=== PATIENT | male | born 1960 | race African-American/Black ===

== ENCOUNTER 2017-08-11 10:51 | Inpatient (IN) | payer OTHER ==
[2017-08-11 11:30] VITALS: BMI 23.7
--- NOTE | 2017-08-11 13:34 | HP ---
Admission ROS S - [facility] Chief Complaint: I WANT TO GO TO REHAB Allergies/Adverse Reactions: Allergies Allergy/AdvReac Type Severity Reaction Status Date / Time Penicillins Allergy Severe Swelling Verified 08/11/17 13:39 History of Present Illness: 57 YEARS OLD MALE WITH LONG HISTORY OF ALCOHOL NICOTINE DEPENDENCE HAS HYPERTENSION WEIGHT LOSS POSITIVE PPD AND DEPRESSION IS ADMITTED TO REHAB Exam Limitations: No Limitations - Ebola screening Have you traveled outside of the country in the last 21 days: No Have you had contact with anyone from an Ebola affected area: No Have you been sick,other than usual withdrawal symptoms: No Do you have a fever: No - Review of Systems Constitutional: Weight Stable EENT: reports: No Symptoms Reported Respiratory: reports: No Symptoms reported Cardiac: reports: No Symptoms Reported GI: reports: No Symptoms Reported : reports: No Symptoms Reported Musculoskeletal: reports: No Symptoms Reported Integumentary: reports: No Symptoms Reported Neuro: reports: No Symptoms reported Endocrine: reports: No Symptoms Reported Hematology: reports: No Symptoms Reported Psychiatric: reports: Judgement Intact, Orientated x3, Depressed Other Systems: Reviewed and Negative Patient History - Patient Medical History Hx Anemia: No Hx Asthma: No Hx Chronic Obstructive Pulmonary Disease (COPD): No Hx Cancer: No Hx Cardiac Disorders: No Hx Congestive Heart Failure: No Hx Hypertension: Yes Hx Hypercholesterolemia: No Hx Pacemaker: No HX Cerebrovascular Accident: No Hx Seizures: No Hx Dementia: No Hx Diabetes: No Hx Gastrointestinal Disorders: No Hx Liver Disease: No Hx Genitourinary Disorders: No Hx Sexually Transmitted Disorders: No Hx Renal Disease (ESRD): No Hx Thyroid Disease: No Hx Human Immunodeficiency Virus (HIV): No Hx Hepatitis C: No Hx Depression: Yes Hx Suicide Attempt: No Hx Bipolar Disorder: No Hx Schizophrenia: No - Patient Surgical History Past Surgical History: No - PPD History Previous Implant?: Yes Documented Results: Positive w/o proof Implanted On Prior [facility] Admission?: No PPD to be Administered?: No - Smoking Cessation Smoking history: Current every day smoker Have you smoked in the past 12 months: Yes Aproximately how many cigarettes per day: 20 Cigars Per Day: 0 Hx Chewing Tobacco Use: No Initiated information on smoking cessation: Yes 'Breaking Loose' booklet given: 08/11/17 - Substance & Tx. History Hx Alcohol Use: Yes Hx Substance Use: Yes Substance Use Type: Alcohol, Cocaine Hx Substance Use Treatment: Yes (2012) - Substances Abused Crack Route: Smoking Frequency: Daily Amount used: $200 Age of first use: 23 Date of Last Use: 08/07/17 Alcohol-beer/vodka Route: Oral Frequency: 1-2 times per week Amount used: 1-6 pk./1 pt Age of first use: 14 Date of Last Use: 08/07/17 Family Disease History - Family Disease History Family Disease History: Heart Disease: Mother (), CA: Father () , Other: Father, Mother Admission Physical Exam [facility] - Vital Signs Vital Signs: Vital Signs - 24 hr 08/11/17 11:28 Temperature 98.2 F Pulse Rate 60 Respiratory 20 Rate Blood Pressure 158/94 - Physical General Appearance: Yes: No Apparent Distress, Appropriately Dressed, Thin HEENTM: Yes: Hearing grossly Normal, Normal ENT Inspection, Normocephalic, Normal Voice Respiratory: Yes: Chest Non-Tender, Lungs Clear, Normal Breath Sounds, No Respiratory Distress, No Accessory Muscle Use Neck: Yes: Supple, Trachea in good position Breast: Yes: Breasts Symetrical, No Discharge, No masses Cardiology: Yes: Regular Rhythm, Regular Rate, S1, S2 Abdominal: Yes: Normal Bowel Sounds, Non Tender, Soft Genitourinary: Yes: Within Normal Limits Back: Yes: Normal Inspection Musculoskeletal: Yes: full range of Motion, Gait Steady Extremities: Yes: Normal Inspection, Normal Range of Motion, Non-Tender 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: Yes: Fully Oriented, Alert, Motor Strength 5/5, Normal Mood/Affect , Normal Response Integumentary: Yes: Warm Lymphatic: Yes: Within Normal Limits - Diagnostic (1) Alcohol dependence with uncomplicated withdrawal Current Visit: Yes Status: Acute (2) Cocaine dependence Current Visit: Yes Status: Chronic Qualifiers: Substance use status: uncomplicated Qualified Code(s): F14.20 - Cocaine dependence, uncomplicated (3) Nicotine dependence Current Visit: Yes Status: Acute Qualifiers: Nicotine product type: cigarettes Substance use status: in withdrawal Qualified Code(s): F17.213 - Nicotine dependence, cigarettes, with withdrawal Cleared for Admission [facility] - Detox or Rehab [facility] Level of Care: Observation Bed Detox Regimen/Protocol: Not Applicable Claeared for Rehab Admission: Yes [facility] Breath Alcohol Content Breath Alcohol Content: 0 Urine Drug Screen - Control Is Test Valid: Yes - Results Drug Screen Negative: No Urine Drug Screen Results: JAYLAN-Cocaine Inpatient Rehab Admission - Initial Determination Are CD services needed?: Yes Free of communicable disease: Yes Not in need of hospitalization: No - Rehab Admission Criteria Previous failed treatment: Yes Poor recovery environment: Yes Comorbidities: Yes Lacks judgement: No Patient is meeting Inpatient Rehab admission criteria:: Yes
[2017-08-11] MEDS ORDERED: MENTHOL/PHENOL 1 EACH UD MM PRN (13:43)
[2017-08-11] MEDS ORDERED: guaiFENesin/D-METHORPHAN HB 10 ML UNIT-DOSE CUPS PO PRN (13:43)
[2017-08-11] MEDS ORDERED: MAGNESIUM CITRATE 300 ML BOTTLE PO PRN (13:43)
[2017-08-11] MEDS ORDERED: NICOTINE POLACRILEX 4 MG GUM BC PRN (13:43)
[2017-08-11] MEDS ORDERED: LOPERAMIDE HCL 2 MG CAPSULE PO PRN (13:43)
[2017-08-11] MEDS ORDERED: ACETAMINOPHEN 325 MG TABLET (FP) PO PRN (13:43)
[2017-08-11] MEDS ORDERED: P-EPHED 60MG/TRIPROLIDI 2.5MG TABLET PO PRN (13:43)
[2017-08-11] MEDS ORDERED: MAGNESIUM HYDROX 2400MG/30ML ORAL SUSPENSION 30 ML CUP PO PRN (13:43)
[2017-08-11 17:05] LABS: HEMATOCRIT 42.1 % (35.4-49); HEMOGLOBIN 13.5 GM/dL (11.7-16.9); MCH 27.3 pg (25.7-33.7); MCHC 32.1 g/dl (32.0-35.9); MEAN CELL VOLUME 84.8 fl (80-96); MEAN PLT VOLUME 8.5 fl (7.5-11.1); PLATELET COUNT 287 K/MM3 (134-434); RBC 4.97 M/mm3 (4.00-5.60); RDW 15.8 % (11.9-15.9); WHITE BLOOD COUNT 6.2 K/mm3 (4.0-10.0)
[2017-08-11 17:19] LABS: ALBUMIN 3.5 g/dl (3.4-5.0); ANION GAP 4 (8-16); BLOOD UREA NITROGEN 15 mg/dL (7-18); CHLORIDE 107 mmol/L (98-107); CO2 31 mmol/L (21-32); CREATININE 1.2 mg/dL (0.7-1.3); GLUCOSE,RANDOM 102 mg/dL (74-106); POTASSIUM 4.3 mmol/L (3.5-5.1); SGOT/AST 14 U/L (15-37); SGPT/ALT 17 U/L (12-78); SODIUM 142 mmol/L (136-145)
[2017-08-11 17:21] LABS: ALK PHOS 86 U/L (45-117); BILIRUBIN,TOTAL 0.2 mg/dL (0.2-1.0); TOT PROT 7.3 g/dl (6.4-8.2)
[2017-08-11] MEDS: amLODIPine BESYLATE 5 MG TABLET (FP) PO SCH (17:56)
[2017-08-11] MEDS: NICOTINE 21 MG/24 HOURS TOPICAL PATCH TD SCH (17:57)
[2017-08-11] MEDS: IBUPROFEN 400 MG TABLET (FP) PO PRN (17:58)
[2017-08-11] MEDS ORDERED: MELATONIN 5 MG TABLETS PO PRN (22:00)
[2017-08-11] MEDS: THIAMINE HCL 100 MG TABLET (FP) PO SCH (22:39)
[2017-08-11 23:09] LABS: URINE APPEARANCE TURBID; URINE BILIRUBIN NEGATIVE (<2.0 mg/dL); URINE BLOOD NEGATIVE (NEGATIVE); URINE COLOR AMBER; URINE GLUCOSE (UA) NEGATIVE (NEGATIVE); URINE KETONE NEGATIVE (NEGATIVE); URINE LEUK ESTERASE NEGATIVE (NEGATIVE); URINE NITRITE NEGATIVE (NEGATIVE); URINE PROTEIN NEGATIVE (NEGATIVE); URINE UROBILINOGEN NEGATIVE mg/dL (0.2-1.0)
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
[2017-08-12] MEDS: amLODIPine BESYLATE 5 MG TABLET (FP) PO SCH (10:27)
[2017-08-12] MEDS: NICOTINE 21 MG/24 HOURS TOPICAL PATCH TD SCH (10:27)
[2017-08-12] MEDS: PRENATAL VITAMINS W/ FOLIC ACID TABLET (FP) PO SCH (10:27)
[2017-08-12] MEDS: THIAMINE HCL 100 MG TABLET (FP) PO SCH (22:40)
--- NOTE | 2017-08-13 08:49 | EKG ---
Test Reason : Blood Pressure : / mmHG Vent. Rate : 057 BPM Atrial Rate : 057 BPM P-R Int : 152 ms QRS Dur : 088 ms QT Int : 416 ms P-R-T Axes : 075 080 040 degrees QTc Int : 404 ms SINUS BRADYCARDIA SEPTAL INFARCT (CITED ON OR BEFORE 11-AUG-2017) ABNORMAL ECG WHEN COMPARED WITH ECG OF 11-AUG-2017 20:27, NO SIGNIFICANT CHANGE WAS FOUND Confirmed by OPAL SEALS MD ([id number]) on 08/13/2017 8:49:30 AM Referred By: Confirmed By:OPAL SEALS MD
--- NOTE | 2017-08-13 08:50 | EKG ---
Test Reason : Blood Pressure : / mmHG Vent. Rate : 065 BPM Atrial Rate : 065 BPM P-R Int : 154 ms QRS Dur : 086 ms QT Int : 406 ms P-R-T Axes : 076 075 022 degrees QTc Int : 422 ms NORMAL SINUS RHYTHM MINIMAL VOLTAGE CRITERIA FOR LVH, MAY BE NORMAL VARIANT SEPTAL INFARCT , AGE UNDETERMINED ABNORMAL ECG NO PREVIOUS ECGS AVAILABLE Confirmed by BOZENA MATA, OPAL ([id number]) on 08/13/2017 8:49:47 AM Referred By: Confirmed By:OPAL SEALS MD
[2017-08-13] MEDS: NICOTINE 21 MG/24 HOURS TOPICAL PATCH TD SCH (10:04)
[2017-08-13] MEDS: amLODIPine BESYLATE 5 MG TABLET (FP) PO SCH (10:04)
[2017-08-13] MEDS: PRENATAL VITAMINS W/ FOLIC ACID TABLET (FP) PO SCH (10:04)
[2017-08-13] MEDS: THIAMINE HCL 100 MG TABLET (FP) PO SCH (22:14)
[2017-08-14] MEDS: amLODIPine BESYLATE 5 MG TABLET (FP) PO SCH (10:18)
[2017-08-14] MEDS: PRENATAL VITAMINS W/ FOLIC ACID TABLET (FP) PO SCH (10:18)
[2017-08-14] MEDS: NICOTINE 21 MG/24 HOURS TOPICAL PATCH TD SCH (10:18)
[2017-08-14] MEDS: THIAMINE HCL 100 MG TABLET (FP) PO SCH (21:55)
[2017-08-15] MEDS: amLODIPine BESYLATE 5 MG TABLET (FP) PO SCH (10:14)
[2017-08-15] MEDS: PRENATAL VITAMINS W/ FOLIC ACID TABLET (FP) PO SCH (10:14)
[2017-08-15] MEDS: NICOTINE 21 MG/24 HOURS TOPICAL PATCH TD SCH (10:14)
[2017-08-15] MEDS: THIAMINE HCL 100 MG TABLET (FP) PO SCH (22:23)
[2017-08-16] MEDS: amLODIPine BESYLATE 5 MG TABLET (FP) PO SCH (10:37)
[2017-08-16] MEDS: NICOTINE 21 MG/24 HOURS TOPICAL PATCH TD SCH (10:37)
[2017-08-16] MEDS: PRENATAL VITAMINS W/ FOLIC ACID TABLET (FP) PO SCH (10:37)
[2017-08-16] MEDS: THIAMINE HCL 100 MG TABLET (FP) PO SCH (22:17)
[2017-08-17] MEDS ORDERED: PT OWN MED DRAWER 7, Y5N ONE (09:17)
[2017-08-17] MEDS: PRENATAL VITAMINS W/ FOLIC ACID TABLET (FP) PO SCH (10:25)
[2017-08-17] MEDS: amLODIPine BESYLATE 5 MG TABLET (FP) PO SCH (10:25)
[2017-08-17] MEDS: NICOTINE 21 MG/24 HOURS TOPICAL PATCH TD SCH (10:26)
--- NOTE | 2017-08-17 16:46 | PN ---
[facility] Progress Note Note: Patient c/o of sore throat worsen with swallowing. Denies SOB, CP, vertigo. Vital Signs Temperature 98.4 F 08/17/17 07:00 Pulse Rate 76 08/17/17 10:00 Respiratory Rate 18 08/17/17 10:00 Blood Pressure 133/77 08/17/17 10:00 O2 Sat by Pulse Oximetry (%) Laboratory Last Values WBC 6.2 K/mm3 (4.0-10.0) 08/11/17 14:08 RBC 4.97 M/mm3 (4.00-5.60) 08/11/17 14:08 Hgb 13.5 GM/dL (11.7-16.9) 08/11/17 14:08 Hct 42.1 % (35.4-49) 08/11/17 14:08 MCV 84.8 fl (80-96) 08/11/17 14:08 MCH 27.3 pg (25.7-33.7) 08/11/17 14:08 MCHC 32.1 g/dl (32.0-35.9) 08/11/17 14:08 RDW 15.8 % (11.9-15.9) 08/11/17 14:08 Plt Count 287 K/MM3 (134-434) 08/11/17 14:08 MPV 8.5 fl (7.5-11.1) 08/11/17 14:08 Sodium 142 mmol/L (136-145) 08/11/17 14:08 Potassium 4.3 mmol/L (3.5-5.1) 08/11/17 14:08 Chloride 107 mmol/L (98-107) 08/11/17 14:08 Carbon Dioxide 31 mmol/L (21-32) 08/11/17 14:08 Anion Gap 4 (8-16) L 08/11/17 14:08 BUN 15 mg/dL (7-18) 08/11/17 14:08 Creatinine 1.2 mg/dL (0.7-1.3) 08/11/17 14:08 Creat Clearance w eGFR > 60 (>60) 08/11/17 14:08 Random Glucose 102 mg/dL (74-106) 08/11/17 14:08 Calcium 9.0 mg/dL (8.5-10.1) 08/11/17 14:08 Total Bilirubin 0.2 mg/dL (0.2-1.0) 08/11/17 14:08 AST 14 U/L (15-37) L 08/11/17 14:08 ALT 17 U/L (12-78) 08/11/17 14:08 Alkaline Phosphatase 86 U/L (45-117) 08/11/17 14:08 Total Protein 7.3 g/dl (6.4-8.2) 08/11/17 14:08 Albumin 3.5 g/dl (3.4-5.0) 08/11/17 14:08 Urine Color Rosie 08/11/17 22:30 Urine Appearance Turbid 08/11/17 22:30 Urine pH 5.0 (5.0-8.0) 08/11/17 22:30 Ur Specific [place] 1.027 (1.001-1.035) 08/11/17 22:30 Urine Protein Negative (NEGATIVE) 08/11/17 22:30 Urine Glucose (UA) Negative (NEGATIVE) 08/11/17 22:30 Urine Ketones Negative (NEGATIVE) 08/11/17 22:30 Urine Blood Negative (NEGATIVE) 08/11/17 22:30 Urine Nitrite Negative (NEGATIVE) 08/11/17 22:30 Urine Bilirubin Negative (<2.0 mg/dL) 08/11/17 22:30 Urine Urobilinogen Negative mg/dL (0.2-1.0) 08/11/17 22:30 Ur Leukocyte Esterase Negative (NEGATIVE) 08/11/17 22:30 RPR Titer Nonreactive (NONREACTIVE) 08/11/17 14:08 HIV 1&2 Antibody Screen Negative 08/11/17 13:59 HIV P24 Antigen Negative 08/11/17 13:59 A/P AOx3 in no apparent distress no adventitious breath sounds + mild left cervical adenopathy, mild pharyngeal erythema skin intact, no erythema Plan: Ibuprofen 400mg PRN peridex wash throat culture continue to monitor
[2017-08-17] MEDS: MAG HYDROX/AL HYDROX/SIMETH 30 ML UNIT-DOSE CUP PO PRN (21:48)
[2017-08-17] MEDS: CHLORHEXIDINE GLUCONATE 118 ML MOUTHWASH MM SCH (21:48)
[2017-08-17] MEDS: THIAMINE HCL 100 MG TABLET (FP) PO SCH (21:50)
[2017-08-18] MEDS: PRENATAL VITAMINS W/ FOLIC ACID TABLET (FP) PO SCH (10:04)
[2017-08-18] MEDS: CHLORHEXIDINE GLUCONATE 118 ML MOUTHWASH MM SCH ×2 (10:04→21:46)
[2017-08-18] MEDS: amLODIPine BESYLATE 5 MG TABLET (FP) PO SCH (10:04)
[2017-08-18] MEDS: NICOTINE 21 MG/24 HOURS TOPICAL PATCH TD SCH (10:05)
[2017-08-18] MEDS: THIAMINE HCL 100 MG TABLET (FP) PO SCH (21:46)
[2017-08-19] MEDS: CHLORHEXIDINE GLUCONATE 118 ML MOUTHWASH MM SCH ×2 (10:00→21:54)
[2017-08-19] MEDS: amLODIPine BESYLATE 5 MG TABLET (FP) PO SCH (10:00)
[2017-08-19] MEDS: PRENATAL VITAMINS W/ FOLIC ACID TABLET (FP) PO SCH (10:00)
[2017-08-19] MEDS: NICOTINE 21 MG/24 HOURS TOPICAL PATCH TD SCH (10:02)
[2017-08-19] MEDS: MAG HYDROX/AL HYDROX/SIMETH 30 ML UNIT-DOSE CUP PO PRN (15:34)
[2017-08-19] MEDS: THIAMINE HCL 100 MG TABLET (FP) PO SCH (21:52)
[2017-08-20] MEDS: CHLORHEXIDINE GLUCONATE 118 ML MOUTHWASH MM SCH ×2 (10:31→21:27)
[2017-08-20] MEDS: PRENATAL VITAMINS W/ FOLIC ACID TABLET (FP) PO SCH (10:32)
[2017-08-20] MEDS: amLODIPine BESYLATE 5 MG TABLET (FP) PO SCH (10:32)
[2017-08-20] MEDS: NICOTINE 21 MG/24 HOURS TOPICAL PATCH TD SCH (10:32)
[2017-08-20] MEDS: THIAMINE HCL 100 MG TABLET (FP) PO SCH (21:27)
[2017-08-21] MEDS: NICOTINE 21 MG/24 HOURS TOPICAL PATCH TD SCH (10:16)
[2017-08-21] MEDS: PRENATAL VITAMINS W/ FOLIC ACID TABLET (FP) PO SCH (10:16)
[2017-08-21] MEDS: amLODIPine BESYLATE 5 MG TABLET (FP) PO SCH (10:16)
[2017-08-21] MEDS: CHLORHEXIDINE GLUCONATE 118 ML MOUTHWASH MM SCH ×2 (10:16→21:28)
[2017-08-21] MEDS: THIAMINE HCL 100 MG TABLET (FP) PO SCH (21:27)
[2017-08-22] MEDS: amLODIPine BESYLATE 5 MG TABLET (FP) PO SCH (10:28)
[2017-08-22] MEDS: PRENATAL VITAMINS W/ FOLIC ACID TABLET (FP) PO SCH (10:29)
[2017-08-22] MEDS: NICOTINE 21 MG/24 HOURS TOPICAL PATCH TD SCH (10:29)
[2017-08-22] MEDS: CHLORHEXIDINE GLUCONATE 118 ML MOUTHWASH MM SCH ×2 (10:30→21:47)
[2017-08-22] MEDS: THIAMINE HCL 100 MG TABLET (FP) PO SCH (21:47)
[2017-08-23] MEDS: CHLORHEXIDINE GLUCONATE 118 ML MOUTHWASH MM SCH ×2 (10:10→22:00)
[2017-08-23] MEDS: NICOTINE 21 MG/24 HOURS TOPICAL PATCH TD SCH (10:10)
[2017-08-23] MEDS: PRENATAL VITAMINS W/ FOLIC ACID TABLET (FP) PO SCH (10:10)
[2017-08-23] MEDS: amLODIPine BESYLATE 5 MG TABLET (FP) PO SCH (10:10)
[2017-08-23] MEDS: THIAMINE HCL 100 MG TABLET (FP) PO SCH (22:00)
[2017-08-24] MEDS: NICOTINE 21 MG/24 HOURS TOPICAL PATCH TD SCH (10:19)
[2017-08-24] MEDS: PRENATAL VITAMINS W/ FOLIC ACID TABLET (FP) PO SCH (10:19)
[2017-08-24] MEDS: CHLORHEXIDINE GLUCONATE 118 ML MOUTHWASH MM SCH ×2 (10:19→21:43)
[2017-08-24] MEDS: amLODIPine BESYLATE 5 MG TABLET (FP) PO SCH (10:19)
[2017-08-24] MEDS: THIAMINE HCL 100 MG TABLET (FP) PO SCH (21:43)
[2017-08-25] MEDS: PRENATAL VITAMINS W/ FOLIC ACID TABLET (FP) PO SCH (10:10)
[2017-08-25] MEDS: CHLORHEXIDINE GLUCONATE 118 ML MOUTHWASH MM SCH ×2 (10:10→21:58)
[2017-08-25] MEDS: amLODIPine BESYLATE 5 MG TABLET (FP) PO SCH (10:10)
[2017-08-25] MEDS: NICOTINE 21 MG/24 HOURS TOPICAL PATCH TD SCH (10:10)
[2017-08-25] MEDS: IBUPROFEN 400 MG TABLET (FP) PO PRN (10:11)
[2017-08-25] MEDS: THIAMINE HCL 100 MG TABLET (FP) PO SCH (21:58)
[2017-08-26] MEDS ORDERED: PT OWN MED DRAWER 7, Y5N ONE (09:16)
[2017-08-26] MEDS: CHLORHEXIDINE GLUCONATE 118 ML MOUTHWASH MM SCH ×2 (10:04→22:04)
[2017-08-26] MEDS: PRENATAL VITAMINS W/ FOLIC ACID TABLET (FP) PO SCH (10:04)
[2017-08-26] MEDS: NICOTINE 21 MG/24 HOURS TOPICAL PATCH TD SCH (10:04)
[2017-08-26] MEDS: amLODIPine BESYLATE 5 MG TABLET (FP) PO SCH (10:04)
[2017-08-26] MEDS: THIAMINE HCL 100 MG TABLET (FP) PO SCH (22:04)
[2017-08-27] MEDS: NICOTINE 21 MG/24 HOURS TOPICAL PATCH TD SCH (10:24)
[2017-08-27] MEDS: PRENATAL VITAMINS W/ FOLIC ACID TABLET (FP) PO SCH (10:24)
[2017-08-27] MEDS: CHLORHEXIDINE GLUCONATE 118 ML MOUTHWASH MM SCH ×2 (10:24→21:46)
[2017-08-27] MEDS: amLODIPine BESYLATE 5 MG TABLET (FP) PO SCH (10:24)
[2017-08-27] MEDS: THIAMINE HCL 100 MG TABLET (FP) PO SCH (21:46)
[2017-08-28] MEDS: amLODIPine BESYLATE 5 MG TABLET (FP) PO SCH (10:08)
[2017-08-28] MEDS: PRENATAL VITAMINS W/ FOLIC ACID TABLET (FP) PO SCH (10:08)
[2017-08-28] MEDS: NICOTINE 21 MG/24 HOURS TOPICAL PATCH TD SCH (10:09)
[2017-08-28] MEDS: CHLORHEXIDINE GLUCONATE 118 ML MOUTHWASH MM SCH ×2 (10:09→22:02)
--- NOTE | 2017-08-28 12:02 | PN ---
Psychiatric Progress Note Vital Signs: Vital Signs Period Temp Pulse Resp BP Sys/Day Pulse Ox Last 24 Hr 98.1 F 66-74 18-20 126-140/71-79 Date of Session: 08/28/17 Chief Complaint:: Discharge Note HPI: Patient addressing Alcohol and Cocaine Dependencde comorbid with Nicotine Dependence ROS: HTN, PPD+ were medically managed Current Medications: Active Medications Generic Name Dose Route Start Last Admin Trade Name Freq PRN Reason Stop Dose Admin Acetaminophen 650 mg 08/11/17 13:43 Tylenol - PO Q4H PRN FEVER Al Hydroxide/Mg Hydroxide 30 ml 08/11/17 13:43 08/19/17 15:34 Mylanta Oral Suspension - PO 30 ml Q6H PRN Administration DYSPEPSIA Amlodipine Besylate 5 mg 08/11/17 15:45 08/28/17 10:08 Norvasc - PO 5 mg DAILY LINNETTE Administration Chlorhexidine Gluconate 15 ml 08/17/17 22:00 08/28/17 10:09 Chlorhexidine Gluconate MM Not Given BID LINNETTE Eucalyptus/Menthol/Phenol/Sorbitol 1 each 08/11/17 13:43 Cepastat Lozenge - MM Q4H PRN SORE THROAT Guaifenesin 10 ml 08/11/17 13:43 Robitussin Dm - PO Q6H PRN COUGH Ibuprofen 400 mg 08/11/17 13:43 08/25/17 10:11 Motrin - PO 400 mg Q6H PRN Administration Pain level 4-6 Loperamide HCl 4 mg 08/11/17 13:43 Imodium - PO Q6H PRN DIARRHEA Magnesium Citrate 300 ml 08/11/17 13:43 Citroma - PO Q48H PRN CONSTIPATION Magnesium Hydroxide 30 ml 08/11/17 13:43 Milk Of Magnesia - PO DAILY PRN CONSTIPATION Melatonin 5 mg 08/11/17 22:00 Melatonin PO HS PRN INSOMNIA Nicotine 21 mg 08/11/17 15:45 08/28/17 10:09 Nicoderm Patch - TD Not Given DAILY LINNETTE Nicotine Polacrilex 4 mg 08/11/17 13:43 Nicorette Gum - BC Q2H PRN NICOTINE REPLACEMENT RX Multivit/Folic Acid/Iron 1 tab 08/12/17 10:00 08/28/17 10:08 Vitamins ([facility]) - PO 1 tab DAILY LINNETTE Administration Pseudoephedrine/Triprolidine 1 combo 08/11/17 13:43 Actifed - PO TID PRN NASAL CONGESTION Thiamine HCl 100 mg 08/11/17 22:00 08/27/17 21:46 Vitamin B1 - PO 100 mg HS LINNETTE Administration Current Side Effect: No Lab tests ordered: Yes Lab tests reviewed: Yes Provider note:: Patient will complete this program on 08/29/17. He has met his treatment goals and will continue to address his issues in group home residential treatment at [facility]. 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 He is stable for discharge on 08/29/17 Total face to face time:: 35 Mental Status Exam - Mental Status Exam Alert and Oriented to: Time, Place, Person Cognitive Function: Fair Patient Appearance: Well Groomed Mood: Hopeful, Euthymic Affect: Appropriate Patient Behavior: Cooperative Speech Pattern: Clear Voice Loudness: Normal Thought Process: Intact Thought Disorder: Not Present Hallucinations: Denies Suicidal Ideation: Denies Homicidal Ideation: Denies Insight/Judgement: Fair Sleep: Fair Appetite: Good Muscle strength/Tone: Normal Gait/Station: Normal Psychiatric Treatment Plan - Problem List (1) Alcohol dependence Current Visit: Yes (2) Cocaine dependence Current Visit: Yes Qualifiers: Substance use status: uncomplicated Qualified Code(s): F14.20 - Cocaine dependence, uncomplicated (3) Nicotine dependence Current Visit: Yes Qualifiers: Nicotine product type: cigarettes Substance use status: in withdrawal Qualified Code(s): F17.213 - Nicotine dependence, cigarettes, with withdrawal (4) HTN (hypertension) Current Visit: Yes Qualifiers: Hypertension type: essential hypertension Qualified Code(s): I10 - Essential (primary) hypertension (5) PPD positive Current Visit: Yes Initial treatment plan: Patient will be discharged tomorrow and referred to [facility] for group home residential treatment
[2017-08-28] MEDS ORDERED: PT OWN MED DRAWER 7, Y5N ONE (22:02)
[2017-08-28] MEDS: THIAMINE HCL 100 MG TABLET (FP) PO SCH (22:02)
[2017-08-29 07:14] VITALS: BP 134/72; PULSE 63; TEMP 98.3
== END 2017-08-29 08:55 | disposition home or self-care (01) | DRG 772 ==
LOC: YASAS 10:51 → Y3W 15:09
PROVIDERS: ADMIT Psychiatry & Neurology Psychiatry; ATTEND Psychiatry & Neurology Psychiatry
PROC: HZ42ZZZ Group Counseling for Substance Abuse Treatment, Cognitive-Behavioral (ICD-10-PCS; principal; 2017-08-11)
DX: F10.20 Alcohol dependence, uncomplicated (principal); F14.20 Cocaine dependence, uncomplicated; F17.213 Nicotine dependence, cigarettes, with withdrawal; I10 Essential (primary) hypertension; R76.11 Nonspecific reaction to tuberculin skin test without active tuberculosis; J02.9 Acute pharyngitis, unspecified; Z88.0 Allergy status to penicillin
CPT/HCPCS: 36415; 71046-TC-FY; 80053; 81003; 85027; 86593; 87070; 87389; 93005; 93010

== ENCOUNTER 2019-12-15 12:08 | Inpatient (IN) | payer OTHER ==
--- OUTSIDE RECORDS SUMMARY | 2019-12-15 12:13 | XMS ---
:1960 Author Organization [facility] Care Team Providers Name Role Phone ED STAFF PHYSICIANROBERTO Unavailable Unavailable [id number], [id number] Unavailable Unavailable ELIJAH CRAIG MD Unavailable Unavailable ED STAFF PHYSICIAN Unavailable Unavailable MD JULIO Unavailable Unavailable Re-disclosure Warning The records that you are about to access may contain information from federally- assisted alcohol or drug abuse programs. If such information is present, then the following federally mandated warning applies: This information has been disclosed to you from records protected by federal confidentiality rules (42 CFR part 2). The federal rules prohibit you from making any further disclosure of this information unless further disclosure is expressly permitted by the written consent of the person to whom it pertains or as otherwise permitted by 42 CFR part 2. A general authorization for the release of medical or other information is NOT sufficient for this purpose. The Federal rules restrict any use of the information to criminally investigate or prosecute any alcohol or drug abuse patient.The records that you are about to access may contain highly sensitive health information, the redisclosure of which is protected by Article 27-F of the [facility] Public Health law. If you continue you may haveaccess to information: Regarding HIV / AIDS; Provided by facilities licensed or operated by the [facility] Office of Mental Health; or Provided by the [facility] Office for People With Developmental Disabilities. If such information is present, then the following [facility] mandated warning applies: This information has been disclosed to you from confidential records which are protected by state law. State law prohibits you from making any further disclosure of this information without the specific written consent of the person to whom it pertains, or as otherwise permitted by law. Any unauthorized further disclosure in violation of state law may result in a fine or senior living sentence or both. A general authorization for the release of medical or other information is NOT sufficient authorization for further disclosure. Encounters Encounter Providers Location Date Indications Data Source(s ) Inpatient Attender: YULISSA STV-1D 03/08/2019 [facility] SURBNSHANYANAdmitter 09:24:00 PM EST Hospital : [facility] 04/02/2019 10:19:00 PM EST Patient discharged. Attender: 03/08/2019 [facility] [place] [id number] 09:24:00 PM [id number] [facility] 04:42:00 PM EST - Hospita l 03/08/2019 09:53:00 PM EST Patient discharged. Attender: 03/08/2019 [place] [id number] 04:42:00 PM [facility]_[id number] Emergency Attender: ROBERTO ED STAFF H 03/07/2019 [facility] PHYSICIANAttender: STAFF ED STAFF 09:31:00 PM E [facility] PHYSICIANAdmitter: ROBERTO ED STAFF 03/08/2019 PHYSICIAN 07:35:00 PM EST Patient discharged. Medications Medication Brand Start Product Dose Route Administrative Pharmacy [facility] Indications Reaction Description Data Name Date Form Instructions Instructions Source(s) Prazosin 1 [facility] ORAL complet Prazosi n HCl [facility] Oral in HCl 2019 Capsu ed - 1 MG ORAL Vi ncents Capsule - 1 MG 12:00: le Capsule Hospi alex ORAL 00 AM Capsul EST e Amlodipine Norvas ORAL complet Norvasc - 10 [facility] 10 MG Oral c - 10 2019 Table ed MG ORAL Jatin cents Tablet MG 12:00: t Tablet Hospital [Norvasc] ORAL 00 AM Tablet EST Insurance Providers Payer name Policy type Policy ID Covered Covered green party's Policy P yazan / Coverage green party ID relationship to [employer] Inf ormation type [employer] [id number] SP [id number] B SELF PAY 0000 Self 0000 MEDICAID INP [id number] Self [id number] B REHAB [facility] [id number] Self [id number] [facility] O [id number] HE[employer]AN [place] [id number] HEALTH STRGY-AFF Problems, Conditions, and Diagnoses Code Display Name Description Problem Type Effective Data Sour ce(s) Dates F14.20 Cocaine Cocaine Diagnosis 04/02/2019 [facility] dependence, dependence, 02:17:00 PM Hospital uncomplicated uncomplicated EST F17.210 Nicotine NICOTINE Diagnosis 03/07/2019 [facility] dependence, DEPENDENCE, 09:31:[address] cigarettes, CIGARETTES, EST uncomplicated UNCOMPLICATED I10 Essential ESSENTIAL Diagnosis 03/07/2019 [facility] (primary) (PRIMARY) 09:31:00 PM Medical Cent[facility] r hypertension HYPERTENSION EST F14.20 Cocaine COCAINE Diagnosis 03/07/2019 [facility] dependence, DEPENDENCE, 09:31:[address] uncomplicated UNCOMPLICATED EST F10.24 Alcohol dependence ALCOHOL DEPENDENCE Diagnosis 9 [facility] with WITH 09:31:00 PM Medical Cente r alcohol-induced ALCOHOL-INDUCED EST mood disorder MOOD DISORDER R45.851 Suicidal ideations SUICIDAL IDEATIONS Diagnosis 9 [facility] 09:31:00 PM Medical Cente r EST Results ID Date Data Source [id number] 10/26/2019 12:14:00 PM EDT [facility] Name Value Range Interpretation Description Data Sup porting Code Source(s) Document(s ) SARS [facility] CORONAVIRUS [address] [place] [address] RNA:PRTHR:PT:RE Hospital SPIRATORY:ORD:P ROBE.AMP.TAR This lab was ordered by [facility] and reported by [facility]. ID Date Data Source Urinalysis.[id number] 03/08/2019 12:04:00 AM EST [facility] 0 Name Value Range Interpretation Description Data Sup porting Code Source(s) Document(s ) Color of Urine YELLOW <content [facility] styleCode="[facility] Deyanira d">Color, [facility] Urine Center </content>YELL OW <content styleCode="Aurea lics"> (YELLOW )</content> UNK NEGATIVE <content [facility] styleCode="[facility] d">Urine [facility] Bilirubin Center </content>NEGA TIVE <content styleCode="Aurea lics"> (NEGATIVE )</content> Ketones NEGATIVE <content [facility] [Mass/volume] styleCode="S[facility] Sousas in Urine by d">Urine Medical Test strip Ketone Center </content>NEGA TIVE MG/DL<content styleCode="Aurea lics"> (NEGATIVE MG/DL)</conten t> UNK CLEAR <content [facility] styleCode="[facility]ira d">Urine Medical Clarity Center </content>JOSE R <content styleCode="Aurea lics"> (CLEAR )</content> Glucose NEGATIVE <content [facility] [Mass/volume] styleCode="S[facility] Deyanria in Urine by d">Urine Medical Test strip Glucose Center </content>NEGA TIVE MG/DL<content styleCode="Aurea lics"> (NEGATIVE MG/DL)</conten t> Specific 1.015-1.02 <content [facility] gravity of 5 styleCode="[facility] Urine by Test d">Urine Medical strip Specific Center [place] </content>1.02 5 <content styleCode="Aurea lics"> (1.015-1.025 )</content> Urobilinogen 0.2-1.0 <content [facility] [Units/volume] styleCode="[facility] in Urine by d">Urine Medical Test strip Urobilinogen Center </content>0.2 MG/DL<content styleCode="Aurea lics"> (0.2-1.0 MG/DL)</conten t> Nitrite NEGATIVE <content [facility] [Presence] in styleCode="[facility] Urine by Test d">Urine Medical strip Nitrite Center </content>NEGA TIVE <content styleCode="Aurea lics"> (NEGATIVE )</content> Hemoglobin NEGATIVE <content [facility] [Presence] in styleCode="[facility] Deyanira Urine by Test d">Urine Blood Medical strip </content>NEGA Center TIVE <content styleCode="Aurea lics"> (NEGATIVE )</content> Leukocyte NEGATIVE <content [facility] esterase styleCode="[facility] Deyanira [Presence] in d">Urine Medical Urine by Test Leukocyte Center strip </content>NEGA TIVE <content styleCode="Aurea lics"> (NEGATIVE )</content> Protein NEGATIVE <content [facility] [Mass/volume] styleCode="S[facility] Mcmillan in Urine by d">Urine Medical Test strip Protein Center </content>NEGA TIVE MG/DL<content styleCode="Aurea lics"> (NEGATIVE MG/DL)</conten t> pH of Urine by 4.5-8.0 <content [facility] Test strip styleCode="[facility] S[facility]as d">Urine pH Medical </content>6.0 Center <content styleCode="Aurea lics"> (4.5-8.0 )</content> ID Date Data Source [id number] 03/08/2019 12:04:00 AM [facility] -0500 Name Value Range Interpretation Description Data Sup porting Code Source(s) Document(s ) Cannabinoids <content [facility] [Presence] in styleCode="S[facility] Mcmillan Urine by Screen d">Cannabinoid Medical method >50 ng/mL s Center </content>NEGA TIVE NG/ML (Reference Range: not available)<br/ > ID Date Data Source HematologyRou.[id number] 03/07/2019 10:40:00 PM [facility] 0500 Name Value Range Interpretation Description Data Sup porting Code Source(s) Document(s ) Leukocytes 4.4-11.0 <content [facility] [#/volume] in styleCode="Bold Deyanira Blood by ">White Blood Medical Automated count Cell Count Center </content>9.61 KCUMM<content styleCode="Ital ics"> (4.4-11.0 KCUMM)</content > Hematocrit 41.0-53. Below low normal <content Saint [Volume 0 styleCode="Bold Deyanira Fraction] of ">Hematocrit Medical Blood by </content>38.8 Center Automated count % L<content styleCode="Ital ics"> (41.0-53.0 %)</content> Erythrocyte mean 80.0-100 <content Saint corpuscular .0 styleCode="Bold Deyanira volume [Entitic ">Mean Medical volume] by Corpuscular Center Automated count Volume </content>83.3 FL<content styleCode="Ital ics"> (80.0-100.0 FL)</content> Hemoglobin 13.5-17. Below low normal <content Saint [Mass/volume] in 5 styleCode="Bold Deyanira Blood ">Hemoglobin Medical </content>12.6 Center G/DL L<content styleCode="Ital ics"> (13.5-17.5 G/DL)</content> Erythrocyte mean 32.0-37. <content [facility] corpuscular 0 styleCode="Bold Deyanira hemoglobin ">Mean Corpus. Medical concentration Hgb Center [Mass/volume] by Concentration Automated count (MCHC) </content>32.5 G/DL<content styleCode="Ital ics"> (32.0-37.0 G/DL)</content> Erythrocytes 4.4-5.9 <content Saint [#/volume] in styleCode="Bold Deyanira Blood by ">Red Blood Medical Automated count Cell Count Center </content>4.66 MCUMM<content styleCode="Ital ics"> (4.4-5.9 MCUMM)</content > Erythrocyte mean 26.0-34. <content [facility] corpuscular 0 styleCode="Bold Deyanira hemoglobin ">Mean Medical [Entitic mass] Corposcular Center by Automated Hemoglobin count </content>27.0 PG<content styleCode="Ital ics"> (26.0-34.0 PG)</content> Erythrocyte 11.5-14. Above high <content [facility] distribution 5 normal styleCode="Bold Deyanira width [Ratio] by ">Red Cell Medical Automated count Distribution Center Width </content>16.8 % H<content styleCode="Ital ics"> (11.5-14.5 %)</content> Platelet mean 8.0-11.0 <content Saint volume [Entitic styleCode="Bold Deyanira volume] in Blood ">Mean Platelet Medical by Automated Volume Center count </content>8.7 FL<content styleCode="Ital ics"> (8.0-11.0 FL)</content> UNK 0.0 <content Saint styleCode="Bold Deyanira ">Nucleated Red Medical Blood Cell Center Count </content>0.00 KCUMM<content styleCode="Ital ics"> (0.0 KCUMM)</content > UNK 0 <content Saint styleCode="Bold Deyanira ">Nucleated Red Medical Blood Cell Center </content>0.0 /100<content styleCode="Ital ics"> (0 /100)</content> Platelets 130-400 <content [facility] [#/volume] in styleCode="Bold Deyanira Blood by ">Platelet Medical Automated count Count Center </content>282 KCUMM<content styleCode="Ital ics"> (130-400 KCUMM)</content > ID Date Data Source GFR(Creatinine).[id number] 03/07/2019 10:40:00 PM [facility] 0-0500 Name Value Range Interpretation Code Description Data Bridgette rce(s) Supporting Document(s ) UNK > 60 <content [facility] styleCode="Bold"> Medical Cent er EGFR </content>82 GFR<content styleCode="Italic s"> (> 60 GFR)</content> ID Date Data Source [facility].[id number] 03/07/2019 10:40:00 PM EST [facility] Name Value Range Interpretation Description Data Sup porting Code Source(s) Document(s ) Potassium 3.5-5.3 <content [facility] [Moles/volume] styleCode="[facility] Deyanira in Serum or d">Potassium Medical Plasma </content>4.4 Center MEQ/L<content styleCode="Aurea lics"> (3.5-5.3 MEQ/L)</conten t> Chloride 98-107 <content [facility] [Moles/volume] styleCode="S[facility] Deyanira in Serum or d">Chloride Medical Plasma </content>105 Center MEQ/L<content styleCode="Aurea lics"> (98-107 MEQ/L)</conten t> Sodium 137-145 <content [facility] [Moles/volume] styleCode="S[facility] Deyanira in Serum or d">Sodium Medical Plasma </content>139 Center MEQ/L<content styleCode="Aurea lics"> (137-145 MEQ/L)</conten t> Glucose 74-106 <content [facility] [Mass/volume] styleCode="Sinai Deyanira in Serum or d">Glucose Medical Plasma </content>104 Center MG/DL<content styleCode="Aurea lics"> (74-106 MG/DL)</conten t> Calcium 8.4-10.2 <content [facility] [Mass/volume] styleCode="S[facility] Deyanira in Serum or d">Calcium Medical Plasma </content>9.9 Center MG/DL<content styleCode="Aurea lics"> (8.4-10.2 MG/DL)</conten t> UNK 9-20 <content [facility] styleCode="[facility] Sousas d">BUN Medical </content>16 Center MG/DL<content styleCode="Aurea lics"> (9-20 MG/DL)</conten t> Carbon 22-30 <content [facility] dioxide, total styleCode="[facility] Sousas [Moles/volume] d">Carbon Medical in Serum or Dioxide Center Plasma </content>28 MEQ/L<content styleCode="Aurea lics"> (22-30 MEQ/L)</conten t> Creatinine 0.5-1.3 <content [facility] [Mass/volume] styleCode="S[facility] Deyanira in Serum or d">Creatinine Medical Plasma </content>1.0 Center MG/DL<content styleCode="Aurea lics"> (0.5-1.3 MG/DL)</conten t> UNK > 60 <content [facility] styleCode="[facility] Deyanira d">EGFR Medical </content>82 Center GFR<content styleCode="Aurea lics"> (> 60 GFR)</content> Procedure Social History Code Duration Value Status Description Data Source(s ) Smoking 03/08/2019 07:07:00 Daily Smoker completed Daily Smoker S [facility] AM EST Center Smoking 03/07/2019 10:32:00 Daily Smoker completed Daily Smoker S [facility] PM EST Center Smoking 03/07/2019 10:00:00 Daily Smoker completed Daily Smoker S [facility] EST Center Smoking 03/07/2019 09:53:00 Daily Smoker completed Daily Smoker S [facility] EST Center Vital Signs ID Date Data Source UNK Name Value Range Interpretation Code Description Data Source(s) Diastolic blood 76 mmHg [address] [facility] Systolic blood 130 mmHg [address] [facility] Respiratory rate 18 bpm 18 bpm [facility] Heart rate 75 bpm 75 bpm [facility] Body temperature 96.8 Fahrenheit 96.8 Fahrenhei t [facility] Body weight 183 lbs 183 lbs [facility] Diastolic blood 78 mmHg [address] [facility] Systolic blood 123 mmHg [address] [facility] Respiratory rate 18 bpm 18 bpm [facility] Heart rate 81 bpm 81 bpm [facility] Body temperature 96.8 Fahrenheit 96.8 Fahrenhei t [facility] Diastolic blood 79 mmHg [address] [facility] Systolic blood 128 mmHg [address] [facility] Respiratory rate 18 bpm 18 bpm [facility] Heart rate 81 bpm 81 bpm [facility] Body temperature 97.3 Fahrenheit 97.3 Fahrenhei t [facility] Diastolic blood 79 mmHg [address] [facility] Systolic blood 128 mmHg [address] [facility] Respiratory rate 18 bpm 18 bpm [facility] Heart rate 81 bpm 81 bpm [facility] Body temperature 97.3 Fahrenheit 97.3 Fahrenhei t [facility] Diastolic blood 78 mmHg [address] [facility] Systolic blood 147 mmHg [address] [facility] Respiratory rate 18 bpm 18 bpm [facility] Heart rate 77 bpm 77 bpm [facility] Diastolic blood 75 mmHg [address] [facility] Systolic blood 131 mmHg [address] [facility] Respiratory rate 18 bpm 18 bpm [facility] Heart rate 64 bpm 64 bpm [facility] Body temperature 97.1 Fahrenheit 97.1 Fahrenhei t [facility] Diastolic blood 75 mmHg [address] [facility] Systolic blood 126 mmHg [address] [facility] Respiratory rate 18 bpm 18 bpm [facility] Heart rate 68 bpm 68 bpm [facility] Body temperature 97.4 Fahrenheit 97.4 Fahrenhei t [facility] Diastolic blood 66 mmHg [address] [facility] Systolic blood 115 mmHg [address] [facility] Respiratory rate 18 bpm 18 bpm [facility] Heart rate 81 bpm 81 bpm [facility] Body temperature 98.0 Fahrenheit 98.0 Fahrenhei t [facility] Body weight 180 lbs 180 lbs [facility] Diastolic blood 69 mmHg [address] [facility] Systolic blood 119 mmHg [address] [facility] Respiratory rate 18 bpm 18 bpm [facility] Heart rate 79 bpm 79 bpm [facility] Body temperature 97.2 Fahrenheit 97.2 Fahrenhei t [facility] Diastolic blood 81 mmHg [address] [facility] Systolic blood 145 mmHg [address] [facility] Respiratory rate 18 bpm 18 bpm [facility] Heart rate 85 bpm 85 bpm [facility] Body temperature 98.0 Fahrenheit 98.0 Fahrenhei t [facility] Diastolic blood 68 mmHg [address] [facility] Systolic blood 121 mmHg [address] [facility] Respiratory rate 18 bpm 18 bpm [facility] Heart rate 58 bpm 58 bpm [facility] Body temperature 96.9 Fahrenheit 96.9 Fahrenhei t [facility] Diastolic blood 76 mmHg [address] [facility] Systolic blood 114 mmHg [address] [facility] Respiratory rate 18 bpm 18 bpm [facility] Heart rate 78 bpm 78 bpm [facility] Body temperature 98.0 Fahrenheit 98.0 Fahrenhei t [facility] Diastolic blood 76 mmHg [address] [facility] Systolic blood 131 mmHg [address] [facility] Respiratory rate 18 bpm 18 bpm [facility] Heart rate 64 bpm 64 bpm [facility] Body temperature 97.4 Fahrenheit 97.4 Fahrenhei t [facility] Diastolic blood 70 mmHg [address] [facility] Systolic blood 141 mmHg [address] [facility] Respiratory rate 19 bpm 19 bpm [facility] Heart rate 100 bpm 100 bpm [facility] Body temperature 98.5 Fahrenheit 98.5 Fahrenhei t [facility] Diastolic blood 70 mmHg [address] [facility] Systolic blood 138 mmHg [address] [facility] Heart rate 78 bpm 78 bpm [facility] Diastolic blood 86 mmHg [address] [facility] Systolic blood 150 mmHg [address] [facility] Respiratory rate 18 bpm 18 bpm [facility] Heart rate 66 bpm 66 bpm [facility] Body temperature 97.4 Fahrenheit 97.4 Fahrenhei t [facility] Diastolic blood 80 mmHg [address] [facility] Systolic blood 136 mmHg [address] [facility] Respiratory rate 18 bpm 18 bpm [facility] Heart rate 79 bpm 79 bpm [facility] Body temperature 98.3 Fahrenheit 98.3 Fahrenhei t [facility] Diastolic blood 75 mmHg [address] [facility] Systolic blood 141 mmHg [address] [facility] Respiratory rate 18 bpm 18 bpm [facility] Heart rate 72 bpm 72 bpm [facility] Body temperature 97.3 Fahrenheit 97.3 Fahrenhei t [facility] Diastolic blood 82 mmHg [address] [facility] Systolic blood 141 mmHg [address] [facility] Respiratory rate 18 bpm 18 bpm [facility] Heart rate 68 bpm 68 bpm [facility] Body temperature 97.5 Fahrenheit 97.5 Fahrenhei t [facility] Diastolic blood 82 mmHg [address] [facility] Systolic blood 146 mmHg [address] [facility] Respiratory rate 18 bpm 18 bpm [facility] Heart rate 75 bpm 75 bpm [facility] Diastolic blood 74 mmHg [address] [facility] Systolic blood 129 mmHg 129 [address] [facility] Respiratory rate 18 bpm 18 bpm [facility] Heart rate 84 bpm 84 bpm [facility] Diastolic blood 69 mmHg [address] [facility] Systolic blood 108 mmHg [address] [facility] Respiratory rate 18 bpm 18 bpm [facility] Heart rate 80 bpm 80 bpm [facility] Body temperature 97.9 Fahrenheit 97.9 Fahrenhei t [facility] Diastolic blood 70 mmHg [address] [facility] Systolic blood 135 mmHg [address] [facility] Respiratory rate 18 bpm 18 bpm [facility] Heart rate 62 bpm 62 bpm [facility] Body temperature 96.8 Fahrenheit 96.8 Fahrenhei t [facility] Body temperature 36.576812 [facility] 36[address]888[address] [facility] Respiratory rate 16 /min 16 /min [facility] Oxygen 99 % 99 % [facility] saturation in Medical Arterial blood Center by Pulse oximetry Heart rate 77 /min 77 /min [facility] Diastolic blood 62 mm[Hg] 62 mm[Hg] [facility] Systolic blood 134 mm[Hg] 134 mm[Hg] [facility] Body temperature 37.918055 Dayana 37.561286 [facility]ana [facility] Respiratory rate 17 /min 17 /min [facility] Oxygen 97 % 97 % [facility] saturation in Medical Arterial blood Center by Pulse oximetry Heart rate 70 /min 70 /min [facility] Diastolic blood 67 mm[Hg] 67 mm[Hg] [facility] pressure Medical Center Systolic blood 142 mm[Hg] 142 mm[Hg] [facility] Body temperature 36.697832 Dayana 36.779485 [facility]ana [facility] Respiratory rate 16 /min 16 /min [facility] Oxygen 98 % 98 % [facility] saturation in Medical Arterial blood Center by Pulse oximetry Heart rate 75 /min 75 /min [facility] Diastolic blood 58 mm[Hg] 58 mm[Hg] [facility] Systolic blood 120 mm[Hg] 120 mm[Hg] [facility] Body temperature 36.514167 Dayana 36.064443 Dayana [facility] Respiratory rate 16 /min 16 /min [facility] Oxygen 98 % 98 % [facility] saturation in Medical Arterial blood Center by Pulse oximetry Heart rate 70 /min 70 /min [facility] Diastolic blood 66 mm[Hg] 66 mm[Hg] [facility] pressure Medical Center Systolic blood 134 mm[Hg] 134 mm[Hg] [facility] Medical [place] Body temperature 36.688034 Dayana 36.124008 [facility] Respiratory rate 17 /min 17 /min [facility] Oxygen 98 % 98 % [facility] saturation in Medical Arterial blood Center by Pulse oximetry Heart rate 73 /min 73 /min [facility] Diastolic blood 68 mm[Hg] 68 mm[Hg] [facility] pressure Medical Center Systolic blood 130 mm[Hg] 130 mm[Hg] [facility] ID Date Data Source [id number] 04/02/2019 10:20:45 PM EST [facility] Name Value Range Interpretation Code Description Data Source(s) Body weight Measured 183 lb 183 lb [facility] Body weight Measured 180 lb 180 lb [facility]
--- NOTE | 2019-12-15 16:44 | BHS.RME ---
Substance Use & Tx History - Substance Use History Alcohol Substance amount: 2 pints charli Frequency of use: Daily Substance route: Oral Date of Last Use: 12/15/19 Cocaine-Crack Frequency of use: Daily Substance route: Smoking Date of Last Use: 12/13/19 - Last Treatment Date of last treatment: 11/2019 Treatment type: Medical Where was last treatment: Detox (Patient reports he was referred from [facility] for inpatient detox, after he was evaluated for suicidal ideation, patient did not bring hospital discharge summary. Patient did bring his psychiatric medications with him. Patient is AOx3, coopertative and denies suicidal / homicidal ideations at this time.) Physical/Psych/Mental Status - Behavior Eye Contact: Normal - Cooperativeness Cooperativeness: Cooperative - Thinking Thought Processes: Goal Directed - Physical Health Problems Is patient presently having any pain?: No Does patient presently have any injuries (include location): No Does patient currently have a fever: No Is patient : No CIWA Nausea/Vomitin-No Nausea/No Vomiting Muscle Tremors: 2 Anxiety: 3 Agitation: 1-Slight > Activity Paroxysmal Sweats: 2 Orientation: 1-Uncertain about Date Tacttile Disturbances: 1-Very Mild Itch/Numbness Auditory Disturbances: 0-None Visual Disturbances: 1-Very Mild Sensitivity Headache: 0-None Present CIWA-Ar Total Score: 11
--- NOTE | 2019-12-15 16:50 | HP ---
CIWA Score Nausea/Vomitin-No Nausea/No Vomiting Muscle Tremors: 2 Anxiety: 3 Agitation: 1-Slight > Activity Paroxysmal Sweats: 2 Orientation: 1-Uncertain about Date Tacttile Disturbances: 1-Very Mild Itch/Numbness Auditory Disturbances: 0-None Visual Disturbances: 1-Very Mild Sensitivity Headache: 0-None Present CIWA-Ar Total Score: 11 - Admission Criteria OASAS Guidelines: Admission for Medically Managed Detox: Requires at least one of the followin. CIWA greater than 12 2. Seizures within the past 24 hours 3. Delirium tremens within the past 24 hours 4. Hallucinations within the past 24 hours 5. Acute intervention needed for co occurring medical disorder 6. Acute intervention needed for co occurring psychiatric disorder 7. Severe withdrawal that cannot be handled at a lower level of care (continued vomiting, continued diarrhea, abnormal vital signs) requiring intravenous medication and/or fluids 8. Patient presents the following: Acute intervention needed for co-occurring med or psych disorder Admission Criteria Met: Admission criteria met Admitting History and Physical - Admission Chief Complaint: Alcohol withdrawal symptoms History Source: Patient Limitations to Obtaining History: No Limitations - Smoking History Smoking history: Current every day smoker Have you smoked in the past 12 months: Yes Aproximately how many cigarettes per day: 20 - Alcohol/Substance Use Hx Alcohol Use: Yes Admission ROS [facility] - HPI Chief Complaint: alcohol withdrawal symptoms Allergies/Adverse Reactions: Allergies Allergy/AdvReac Type Severity Reaction Status Date / Time Penicillins Allergy Severe Swelling Verified 12/15/19 17:36 History of Present Illness: Patient is a 59 yo AA male with hx of alcohol and crack/cocaine dependence currently residing in a [facility] in [facility], is here after he was referred from [facility] for treatment. Patient reports hx of suicidal ideation and admission to [facility] 12/13/19 -12/15/19. Denies SI/HI at this time. Patient did not bring hospital discharge summary. Denies hx of seizures, reports past hx of syncope do to intoxication. Longest period of sobriety seven years, relapse a year ago, but is motivated to start treatment. PMHX: HTN, Sciatica. Psych: PTSD, Depression, anxiety, insomnia Exam Limitations: No Limitations - Review of Systems Constitutional: Night Sweats, Weakness, Weight Stable EENT: reports: No Symptoms Reported Respiratory: reports: No Symptoms reported Cardiac: reports: No Symptoms Reported GI: reports: Other (increase appetite) : reports: No Symptoms Reported Musculoskeletal: reports: No Symptoms Reported Integumentary: reports: No Symptoms Reported Neuro: reports: Weakness Endocrine: reports: Increased Hunger, Increased Urine Hematology: reports: No Symptoms Reported Psychiatric: reports: Orientated x3, Anxious, Depressed Other Systems: Reviewed and Negative Patient History - Patient Medical History Hx Anemia: No Hx Asthma: No Hx Chronic Obstructive Pulmonary Disease (COPD): No Hx Cancer: No Hx Cardiac Disorders: No Hx Congestive Heart Failure: No Hx Hypertension: Yes Hx Hypercholesterolemia: No Hx Pacemaker: No HX Cerebrovascular Accident: No Hx Seizures: No Hx Dementia: No Hx Diabetes: No Hx Gastrointestinal Disorders: No Hx Liver Disease: No Hx Genitourinary Disorders: No Hx Sexually Transmitted Disorders: No Hx Renal Disease (ESRD): No Hx Thyroid Disease: No Hx Human Immunodeficiency Virus (HIV): No Hx Hepatitis C: No Hx Depression: Yes Hx Suicide Attempt: Yes Hx Bipolar Disorder: No Hx Schizophrenia: No - Patient Surgical History Past Surgical History: No Hx Neurologic Surgery: No Hx Cataract Extraction: No Hx Cardiac Surgery: No Hx Lung Surgery: No Hx Breast Surgery: No Hx Breast Biopsy: No Hx Abdominal Surgery: No Hx Appendectomy: No Hx Cholecystectomy: No Hx Genitourinary Surgery: No Hx Section: No Hx Orthopedic Surgery: No Anesthesia Reaction: No - PPD History Previous Implant?: No Documented Results: Positive w/o proof Implanted On Prior R Admission?: No PPD to be Administered?: No - Smoking Cessation Smoking history: Current every day smoker Have you smoked in the past 12 months: Yes Aproximately how many cigarettes per day: 20 Cigars Per Day: 0 Hx Chewing Tobacco Use: No Initiated information on smoking cessation: Yes 'Breaking Loose' booklet given: 12/15/19 - Substance & Tx. History Hx Alcohol Use: Yes Hx Substance Use: Yes Substance Use Type: Alcohol Hx Substance Use Treatment: Yes ([facility] March 2019) - Substances abused Alcohol Substance route: Oral Frequency: Daily Amount used: 2 pints of Carrie Age of first use: 14 Date of last use: 12/15/19 Crack Substance route: Smoking Frequency: Daily Amount used: $100 Age of first use: 24 Date of last use: 12/15/19 Admission Physical Exam [facility] - Physical General Appearance: Yes: Disheveled, Mild Distress, Thin, Irritable, Anxious HEENTM: Yes: EOMI, Hearing grossly Normal, Normal ENT Inspection, Normocephalic, Normal Voice, DEE, Pharynx Normal, Tm's normal Respiratory: Yes: Chest Non-Tender, Lungs Clear, Normal Breath Sounds, No Respiratory Distress, No Accessory Muscle Use Neck: Yes: Within Normal Limits Breast: Yes: Breast Exam Deferred Cardiology: Yes: Regular Rhythm, Tachycardia Abdominal: Yes: Within Normal Limits, Normal Bowel Sounds, Non Tender, Flat, Soft Genitourinary: Yes: Within Normal Limits Back: Yes: Normal Inspection Musculoskeletal: Yes: full range of Motion, Gait Steady, Pelvis Stable Extremities: Yes: Normal Capillary Refill, Normal Inspection, Normal Range of Motion, Non-Tender 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: 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: 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 NML intact, Fully Oriented, Alert, Motor Strength 5/5, Normal Response, Depressed Affect Integumentary: Yes: Normal Color, Dry, Warm Lymphatic: Yes: Within Normal Limits - Diagnostic (1) History of positive PPD Current Visit: Yes Status: Acute (2) Alcohol dependence with uncomplicated withdrawal Current Visit: Yes Status: Acute (3) Nicotine dependence Current Visit: Yes Status: Acute Qualifiers: Nicotine product type: cigarettes Substance use status: in withdrawal Qualified Code(s): F17.213 - Nicotine dependence, cigarettes, with withdrawal (4) Cocaine dependence Current Visit: Yes Status: Chronic Qualifiers: Substance use status: uncomplicated Qualified Code(s): F14.20 - Cocaine dependence, uncomplicated (5) HTN (hypertension) Current Visit: Yes Status: Chronic Qualifiers: Hypertension type: essential hypertension Qualified Code(s): I10 - Essential (primary) hypertension (6) Anxiety Current Visit: Yes Status: Chronic (7) Depression Current Visit: Yes Status: Chronic Qualifiers: Depression Type: unspecified Qualified Code(s): F32.9 - Major depressive disorder, single episode, unspecified (8) PTSD (post-traumatic stress disorder) Current Visit: Yes Status: Chronic Cleared for Admission [facility] - Detox or Rehab [facility] Level of Care: Medically Managed Detox Regimen/Protocol: Valium Breathalyzer - Breathalyzer Breathalyzer: 0 Urine Drug Screen - Test Device Lot number: [id number] Expiration date: 10/18/20 - Control Is test valid?: Yes - Results Drug screen NEGATIVE: No Urine drug screen results: [facility]-Cocaine Inpatient Rehab Admission - Rehab Decision to Admit Inpatient rehab admission?: No
[2019-12-15] MEDS ORDERED: MENTHOL/PHENOL 1 EACH UD MM PRN (17:07)
[2019-12-15] MEDS ORDERED: MAGNESIUM CITRATE 300 ML BOTTLE PO PRN (17:07)
[2019-12-15] MEDS ORDERED: BISMUTH SUBSALICYLATE 524 MG/30 ML UD PO PRN (17:07)
[2019-12-15] MEDS ORDERED: MAG HYDROX/AL HYDROX/SIMETH 30 ML UNIT-DOSE CUP PO PRN (17:07)
[2019-12-15] MEDS ORDERED: hydrOXYzine PAMOATE 25 MG CAPSULE (FP) PO PRN (17:07)
[2019-12-15] MEDS ORDERED: IBUPROFEN 400 MG TABLET (FP) PO PRN (17:07)
[2019-12-15] MEDS ORDERED: MAGNESIUM HYDROX 2400MG/30ML ORAL SUSPENSION 30 ML CUP PO PRN (17:07)
[2019-12-15] MEDS ORDERED: METHOCARBAMOL 500 MG TABLET PO PRN (17:07)
[2019-12-15] MEDS ORDERED: NICOTINE POLACRILEX 2 MG GUM BUC PRN (17:07)
--- OUTSIDE RECORDS SUMMARY | 2019-12-15 17:42 | XMS ---
:1960 Author Organization [facility] Care Team Providers Name Role Phone ED STAFF PHYSICIANROBERTO Unavailable Unavailable [id number], [id number] Unavailable Unavailable ELIJAH CRAIG MD Unavailable Unavailable [...] is protected by Article 27-F of the [facility] Public Health law. If you continue you may haveaccess to information: Regarding HIV / AIDS; Provided by facilities licensed or operated by the [facility] Office of Mental Health; or Provided by the [facility] Office for People With Developmental Disabilities. If such information is present, then the following [facility] mandated warning applies: This information has [...] law may result in a fine or penitentiary sentence or both. A general authorization for the release of medical or other information is NOT sufficient authorization for further disclosure. Encounters Encounter Providers Location Date Indications Data Source(s ) Inpatient Attender: YULISSA STV-1D 03/08/2019 [facility] SURBNSHANYANAdmitter 09:24:00 PM EST Hospital : [facility] 04/02/2019 10:19:00 PM EST Patient discharged. Attender: 03/08/2019 [facility] [place] [id number] 09:24:00 PM [facility] [facility] 04[facility]00 PM [facility] - Hospita l 03/08/2019 09:53:00 PM EST Patient discharged. Attender: 03/08/2019 [place] [id number] 04:42:00 PM [facility]_6766 Emergency Attender: ROBERTO ED STAFF H 03/07/2019 [facility] PHYSICIANAttender: STAFF ED STAFF 09:31:00 PM E [facility] PHYSICIANAdmitter: ROBERTO ED STAFF 03/08/2019 PHYSICIAN 07:35:00 PM EST Patient discharged. Medications Medication Brand Start Product Dose Route Administrative Pharmacy [facility] Indications Reaction Description Data Name Date Form [...] name Policy type Policy ID Covered Covered republican's Policy P yazan / Coverage republican ID relationship to [facility] Inf ormation type [facility] [facility] [id number] SP [id number] B SELF PAY 0000 Self 0000 MEDICAID INP [id number] Self [id number] B REHAB [facility] [id number] Self [id number] [facility] O [id number] [employer] [place] [id number] [facility]ALTH STRGY-AFF Problems, Conditions, and Diagnoses Code Display Name Description Problem Type Effective Data Sour ce(s) Dates F14.20 Cocaine Cocaine Diagnosis 04/02/2019 [facility] dependence, dependence, 02:17:00 PM Hospital uncomplicated uncomplicated EST F17.210 Nicotine NICOTINE Diagnosis 03/07/2019 [facility] dependence, DEPENDENCE, 09:31:[address] cigarettes, CIGARETTES, EST uncomplicated UNCOMPLICATED I10 Essential ESSENTIAL Diagnosis 03/07/2019 [facility] (primary) (PRIMARY) 09:31:00 PM [facility] hypertension HYPERTENSION EST F14.20 Cocaine COCAINE Diagnosis 03/07/2019 [facility] dependence, DEPENDENCE, 09:31:[address] uncomplicated UNCOMPLICATED EST F10.24 Alcohol dependence ALCOHOL DEPENDENCE Diagnosis 9 [facility] with WITH 09:31:00 PM Medical Cent[facility] r alcohol-induced ALCOHOL-INDUCED EST mood disorder MOOD DISORDER R45.851 Suicidal ideations SUICIDAL IDEATIONS Diagnosis 9 [facility] 09:31:00 PM Medical Cente r EST Results ID Date Data Source [id number] 10/26/2019 12:14:00 PM EDT [facility] Name Value Range Interpretation Description Data Sup porting Code Source(s) Document(s ) SARS [facility] CORONAVIRUS [address] [place] [address] RNA:PRTHR:PT:RE Hospital SPIRATORY:ORD:P ROBE.AMP.TAR This lab was ordered by [facility] and reported by [facility]. ID Date Data Source Urinalysis.[id number] 03/08/2019 12:04:00 AM EST [facility] 0 Name Value Range Interpretation Description Data Sup porting Code Source(s) Document(s ) Color of Urine YELLOW <content [facility] styleCode="[facility] d">Color, [facility] Urine Center </content>YELL OW <content styleCode="Aurea lics"> (YELLOW )</content> UNK NEGATIVE <content [facility] styleCode="[facility] d">Urine [facility] Bilirubin Center </content>NEGA TIVE <content styleCode="Aurea lics"> (NEGATIVE )</content> Ketones NEGATIVE <content [facility] [Mass/volume] styleCode="[facility] in Urine by d">Urine Medical Test strip Ketone Center </content>NEGA TIVE MG/DL<content styleCode="Aurea lics"> (NEGATIVE MG/DL)</conten t> UNK CLEAR <content [facility] styleCode="[facility] d">Urine Medical Clarity Center </content>JOSE R <content styleCode="Aurea lics"> (CLEAR )</content> Glucose NEGATIVE <content [facility] [Mass/volume] styleCode="[facility] in Urine by d">Urine Medical Test strip Glucose Center </content>NEGA TIVE MG/DL<content styleCode="Aurea lics"> (NEGATIVE MG/DL)</conten t> Specific 1.015-1.02 <content [facility] gravity of 5 styleCode="[facility] Urine by Test d">Urine Medical strip Specific Center [place] </content>1.02 5 <content styleCode="Aurea lics"> (1.015-1.025 )</content> [...] (4.5-8.0 )</content> ID Date Data [id number] 03/08/2019 12:04:00 AM [facility] -0500 Name Value Range Interpretation Description Data Sup porting Code Source(s) Document(s ) Cannabinoids <content [facility] [Presence] in styleCode="[facility] Urine by Screen d">Cannabinoid Medical method >50 ng/mL s Center </content>NEGA TIVE NG/ML (Reference Range: not available)<br/ > ID Date Data Source HematologyRou.[id number] 03/07/2019 10:40:00 PM [facility] 0500 Name Value Range Interpretation Description Data [...] (130-400 KCUMM)</content > ID Date Data Source GFR(Creatinine).[id number] 03/07/2019 10:40:00 PM PABLIT[facility] 0-0500 Name Value Range Interpretation Code Description Data Bridgette rce(s) Supporting Document(s ) UNK > 60 <content [facility] styleCode="Bold"> Medical Cent er EGFR </content>82 GFR<content styleCode="Italic s"> (> 60 GFR)</content> ID Date Data Source [facility].[id number] 03/07/2019 10:40:[address] [facility] Name Value Range Interpretation Description Data [...] 07:07:00 Daily Smoker completed Daily Smoker S [facility] AM EST Center Smoking 03/07/2019 10:32:00 Daily Smoker completed Daily Smoker S [facility] PM EST Center Smoking 03/07/2019 10:00:00 Daily Smoker completed Daily Smoker S [facility] EST Center Smoking 03/07/2019 09:53:00 Daily Smoker completed Daily Smoker S [facility] EST Center Vital Signs ID Date Data Source UNK Name Value Range Interpretation Code Description Data Source(s) Diastolic blood 76 mmHg 76 mmHg [facility] Systolic blood 130 mmHg 130 mmHg [facility] Respiratory rate 18 bpm 18 bpm [facility] Heart rate 75 bpm 75 bpm [facility] Body temperature 96.8 Fahrenheit 96.8 Fahrenhei t [facility] Body weight 183 lbs 183 lbs [facility] Diastolic blood 78 mmHg 78 mmHg [facility] Systolic blood 123 mmHg 123 mmHg [facility] Respiratory rate 18 bpm 18 bpm [facility] Heart rate 81 bpm 81 bpm [facility] Body temperature 96.8 Fahrenheit 96.8 Fahrenhei t [facility] Diastolic blood 79 mmHg 79 mmHg [facility] Systolic blood 128 mmHg 128 mmHg [facility] Respiratory rate 18 bpm 18 bpm [facility] Heart rate 81 bpm 81 bpm [facility] Body temperature 97.3 Fahrenheit 97.3 Fahrenhei t [facility] Diastolic blood 79 mmHg 79 mmHg [facility] Systolic blood 128 mmHg 128 mmHg [facility] Respiratory rate 18 bpm 18 bpm [facility] Heart rate 81 bpm 81 bpm [facility] Body temperature 97.3 Fahrenheit 97.3 Fahrenhei t [facility] Diastolic blood 78 mmHg 78 mmHg [facility] Systolic blood 147 mmHg 147 mmHg [facility] Respiratory rate 18 bpm 18 bpm [facility] Heart rate 77 bpm 77 bpm [facility] Diastolic blood 75 mmHg 75 mmHg [facility] Systolic blood 131 mmHg 131 mmHg [facility] Respiratory rate 18 bpm 18 bpm [facility] Heart rate 64 bpm 64 bpm [facility] Body temperature 97.1 Fahrenheit 97.1 Fahrenhei t [facility] Diastolic blood 75 mmHg 75 mmHg [facility] Systolic blood 126 mmHg 126 mmHg [facility] Respiratory rate 18 bpm 18 bpm [facility] Heart rate 68 bpm 68 bpm [facility] Body temperature 97.4 Fahrenheit 97.4 Fahrenhei t [facility] Diastolic blood 66 mmHg 66 mmHg [facility] Systolic blood 115 mmHg 115 mmHg [facility] Respiratory rate 18 bpm 18 bpm [facility] Heart rate 81 bpm 81 bpm [facility] Body temperature 98.0 Fahrenheit 98.0 Fahrenhei t [facility] Body weight 180 lbs 180 lbs [facility] Diastolic blood 69 mmHg 69 mmHg [facility] Systolic blood 119 mmHg 119 mmHg [facility] Respiratory rate 18 bpm 18 bpm [facility] Heart rate 79 bpm 79 bpm [facility] Body temperature 97.2 Fahrenheit 97.2 Fahrenhei t [facility] Diastolic blood 81 mmHg 81 mmHg [facility] Systolic blood 145 mmHg 145 mmHg [facility] Respiratory rate 18 bpm 18 bpm [facility] Heart rate 85 bpm 85 bpm [facility] Body temperature 98.0 Fahrenheit 98.0 Fahrenhei t [facility] Diastolic blood 68 mmHg 68 mmHg [facility] Systolic blood 121 mmHg 121 mmHg [facility] Respiratory rate 18 bpm 18 bpm [facility] Heart rate 58 bpm 58 bpm [facility] Body temperature 96.9 Fahrenheit 96.9 Fahrenhei t [facility] Diastolic blood 76 mmHg 76 mmHg [facility] Systolic blood 114 mmHg 114 mmHg [facility] Respiratory rate 18 bpm 18 bpm [facility] Heart rate 78 bpm 78 bpm [facility] Body temperature 98.0 Fahrenheit 98.0 Fahrenhei t [facility] Diastolic blood 76 mmHg 76 mmHg [facility] Systolic blood 131 mmHg 131 mmHg [facility] Respiratory rate 18 bpm 18 bpm [facility] Heart rate 64 bpm 64 bpm [facility] Body temperature 97.4 Fahrenheit 97.4 Fahrenhei t [facility] Diastolic blood 70 mmHg 70 mmHg [facility] Systolic blood 141 mmHg 141 mmHg [facility] Respiratory rate 19 bpm 19 bpm [facility] Heart rate 100 bpm 100 bpm [facility] Body temperature 98.5 Fahrenheit 98.5 Fahrenhei t [facility] Diastolic blood 70 mmHg 70 mmHg [facility] Systolic blood 138 mmHg 138 mmHg [facility] Heart rate 78 bpm 78 bpm [facility] Diastolic blood 86 mmHg 86 mmHg [facility] Systolic blood 150 mmHg 150 mmHg [facility] Respiratory rate 18 bpm 18 bpm [facility] Heart rate 66 bpm 66 bpm [facility] Body temperature 97.4 Fahrenheit 97.4 Fahrenhei t [facility] Diastolic blood 80 mmHg 80 mmHg [facility] Systolic blood 136 mmHg 136 mmHg [facility] Respiratory rate 18 bpm 18 bpm [facility] Heart rate 79 bpm 79 bpm [facility] Body temperature 98.3 Fahrenheit 98.3 Fahrenhei t [facility] Diastolic blood 75 mmHg 75 mmHg [facility] Systolic blood 141 mmHg 141 mmHg [facility] Respiratory rate 18 bpm 18 bpm [facility] Heart rate 72 bpm 72 bpm [facility] Body temperature 97.3 Fahrenheit 97.3 Fahrenhei t [facility] Diastolic blood 82 mmHg 82 mmHg [facility] Systolic blood 141 mmHg 141 mmHg [facility] Respiratory rate 18 bpm 18 bpm [facility] Heart rate 68 bpm 68 bpm [facility] Body temperature 97.5 Fahrenheit 97.5 Fahrenhei t [facility] Diastolic blood 82 mmHg 82 mmHg [facility] Systolic blood 146 mmHg 146 mmHg [facility] Respiratory rate 18 bpm 18 bpm [facility] Heart rate 75 bpm 75 bpm [facility] Diastolic blood 74 mmHg 74 mmHg [facility] Systolic blood 129 mmHg 129 mmHg [facility] Respiratory rate 18 bpm 18 bpm [facility] Heart rate 84 bpm 84 bpm [facility] Diastolic blood 69 mmHg 69 mmHg [facility] Systolic blood 108 mmHg 108 mmHg [facility] Respiratory rate 18 bpm 18 bpm [facility] Heart rate 80 bpm 80 bpm [facility] Body temperature 97.9 Fahrenheit 97.9 Fahrenhei t [facility] Diastolic blood 70 mmHg 70 mmHg [facility] Systolic blood 135 mmHg 135 mmHg [facility] Respiratory rate 18 bpm 18 bpm [facility] Heart rate 62 bpm 62 bpm [facility] Body temperature 96.8 Fahrenheit 96.8 Fahrenhei t [facility] Body temperature 36.815902 Dayana 36.678682 [facility] Respiratory rate 16 /min 16 /min [facility] Oxygen 99 % 99 % [facility] saturation in Medical Arterial blood Center by Pulse oximetry Heart rate 77 /min 77 /min [facility] Diastolic blood 62 mm[Hg] 62 mm[Hg] [facility] Systolic blood 134 mm[Hg] 134 mm[Hg] [facility] Body temperature 37.980749 Dayana 37.858495 [facility] Respiratory rate 17 /min 17 /min [facility] Oxygen 97 % 97 % [facility] saturation in Medical Arterial blood Center by Pulse oximetry Heart rate 70 /min 70 /min [facility] Diastolic blood 67 mm[Hg] 67 mm[Hg] [facility] pressure Medical Center Systolic blood 142 mm[Hg] 142 mm[Hg] [facility] Body temperature 36.767331 Dayana 36.586520 [facility] Respiratory rate 16 /min 16 /min [facility] Oxygen 98 % 98 % [facility] saturation in Medical Arterial blood Center by Pulse oximetry Heart rate 75 /min 75 /min [facility] Diastolic blood 58 mm[Hg] 58 mm[Hg] [facility] Systolic blood 120 mm[Hg] 120 mm[Hg] [facility] Body temperature 36.955412 Dayana 36.734965 [facility] Respiratory rate 16 /min 16 /min [facility] Oxygen 98 % 98 % [facility] saturation in Medical Arterial blood Center by Pulse oximetry Heart rate 70 /min 70 /min [facility] Diastolic blood 66 mm[Hg] 66 mm[Hg] [facility] pressure Medical Center Systolic blood 134 mm[Hg] 134 mm[Hg] [facility] [place] Body temperature 36.164687 Dayana 36.979925 Day[facility] Respiratory rate 17 /min 17 /min [facility] Oxygen 98 % 98 % [facility] saturation in Medical Arterial blood Center by Pulse oximetry Heart rate 73 /min 73 /min [facility] Diastolic blood 68 mm[Hg] 68 mm[Hg] [facility] pressure Medical Center Systolic blood 130 mm[Hg] 130 mm[Hg] [facility] ID Date Data Source [id number] 04/02/2019 10:20:45 PM EST [facility] Name Value Range Interpretation Code Description Data Source(s) Body weight Measured 183 lb 183 lb [facility] Body weight Measured 180 lb 180 lb [facility]
[2019-12-15] MEDS ORDERED: diazePAM 5 MG TABLET PO PRN (17:58)
[2019-12-15] MEDS: PRENATAL VITAMINS W/ FOLIC ACID TABLET (FP) PO SCH (18:55)
[2019-12-15] MEDS ORDERED: QUEtiapine FUMARATE 100 MG TABLET (FP) PO ONE (20:00)
[2019-12-15] MEDS: diazePAM 5 MG TABLET PO SCH (22:33)
[2019-12-15] MEDS: THIAMINE HCL 100 MG TABLET (FP) PO SCH (22:33)
[2019-12-16] MEDS: diazePAM 5 MG TABLET PO SCH ×4 (05:27→23:05)
[2019-12-16] MEDS: amLODIPine BESYLATE 10 MG TABLET (FP) PO SCH (10:09)
[2019-12-16] MEDS: PRENATAL VITAMINS W/ FOLIC ACID TABLET (FP) PO SCH (10:10)
[2019-12-16] MEDS: BACITRACIN 0.9 GM PACKET TP SCH (10:10)
[2019-12-16] MEDS: NICOTINE 7 MG/24 HOURS TOPICAL PATCH TD SCH (10:10)
--- NOTE | 2019-12-16 11:29 | PN ---
S CIWA - CIWA Score Nausea/Vomitin-Mild Nausea/No Vomiting Muscle Tremors: 2 Anxiety: 2 Agitation: 2 Paroxysmal Sweats: 1-Minimal Palms Moist Orientation: 0-Oriented Tacttile Disturbances: 0-None Auditory Disturbances: 0-None Visual Disturbances: 2-Mild Sensitivity Headache: 2-Mild CIWA-Ar Total Score: 12 [facility] Progress Note (SOAP) Subjective: 59 years old male was admitted on 12/15/19 for alcohol withdrawal sx management treating with valium detox regiment feels tired bmi 16.4 ensure supplement 120 ml po tid with meals history of hypertension Vital Signs - 24 hr 12/15/19 12/15/19 12/15/19 17:35 19:30 20:30 Temperature 97.7 F 97.8 F 97.3 F L Pulse Rate 108 H 90 95 H Respiratory 18 18 18 Rate Blood Pressure 128/74 149/88 139/76 O2 Sat by Pulse 98 97 Oximetry (%) 12/16/19 12/16/19 05:21 08:35 Temperature 96.8 F L 98.4 F Pulse Rate 78 90 Respiratory 18 20 Rate Blood Pressure 134/80 154/76 O2 Sat by Pulse 98 Oximetry (%) treated with amlodipine 10 mg po adding clonidine 0.1 mg po prn Objective: 12/16/19 11:34 lab pending Assessment: 12/16/19 11:34 alcohol withdrawal Plan: valium regiment
[2019-12-16] MEDS ORDERED: cloNIDine HCL 0.1 MG TABLET PO PRN (11:31)
[2019-12-16 12:00] LABS: HEMATOCRIT 38.3 % (35.4-49); HEMOGLOBIN 12.3 GM/dL (11.7-16.9); MCH 26.8 pg (25.7-33.7); MCHC 32.2 g/dl (32.0-35.9); MEAN CELL VOLUME 83.1 fl (80-96); MEAN PLT VOLUME 8.2 fl (7.5-11.1); PLATELET COUNT 300 K/MM3 (134-434); RDW 16.5 % (11.9-15.9); WHITE BLOOD COUNT 5.8 K/mm3 (4.0-10.0)
[2019-12-16 12:15] LABS: ALBUMIN 3.3 g/dl (3.4-5.0); BILIRUBIN,TOTAL 0.7 mg/dL (0.2-1); BLOOD UREA NITROGEN 10.5 mg/dL (7-18); POTASSIUM 3.7 mmol/L (3.5-5.1); TOT PROT 7.1 g/dl (6.4-8.2)
--- NOTE | 2019-12-16 14:04 | CONSULT ---
[facility] Psychiatric Consult - Data Date of interview: 12/16/19 Admission source: [facility] Identifying data: Patient is a 59 year old black male, states both his children are , unemployed, resides in [place], and is not currently receiving financial assistance. This is one of multiple admissions for patient. Patient admitted to for alcohol and cocaine dependence. Substance Abuse History: Substance & Tx. History. Hx Alcohol Use: Yes. Hx Substance Use: Yes. Substance Use Type: Alcohol. Hx Substance Use Treatment: Yes ([facility] March 2019). - Substances abused. Alcohol. Substance route: Oral. Frequency: Daily. Amount used: 2 pints of Carrie. Age of first use: 14. Date of last use: 12/15/19. Crack. Substance route: Smoking. Frequency: Daily. Amount used: $100. Age of first use: 24. Date of last use: 12/15/19 Medical History: Signinificant for hypertension, PPD+ Psychiatric History: Interview conducted bedside. Mr. Russ reports history of one psychiatric hospitalization which occured last month at [facility] due to suicidal ideation. States that he was diagnose with depression and prescribed seroquel 200mg + doxepin (unsure of dose). Patient is not followed by an outpatient psychiatric provider. No reported history of suicide attempt. Physical/Sexual Abuse/Trauma History: denies. Mental Status Exam - Mental Status Exam Alert and Oriented to: Time, Place, Person Cognitive Function: Good Patient Appearance: Well Groomed Mood: Withdrawn Affect: Mood Congruent Patient Behavior: Fatigued, Cooperative Speech Pattern: Clear Voice Loudness: Normal Thought Process: Goal Oriented Hallucinations: Denies Suicidal Ideation: Denies Homicidal Ideation: Denies Insight/Judgement: Poor Sleep: Poorly Appetite: Fair Muscle strength/Tone: Normal Gait/Station: Normal Psychiatric Findings - Problem List ([place] 1, 2,3) (1) Substance induced mood disorder Current Visit: Yes Status: Acute (2) Alcohol dependence with uncomplicated withdrawal Current Visit: Yes Status: Acute (3) Nicotine dependence Current Visit: Yes Status: Acute Qualifiers: Nicotine product type: cigarettes Substance use status: in withdrawal Qualified Code(s): F17.213 - Nicotine dependence, cigarettes, with withdrawal (4) Cocaine dependence Current Visit: Yes Status: Chronic Qualifiers: Substance use status: uncomplicated Qualified Code(s): F14.20 - Cocaine dependence, uncomplicated (5) Substance-induced sleep disorder Current Visit: Yes Status: Acute - Initial Treatment Plan Initial Treatment Plan: Psychoeducation provided. Detoxification in progress. Patient received a one time dose of seroquel 100mg HS. Patient requesting seroquel 200mg which is what he states he received at [facility]. Will o rder Seroquel 200mg HS. Benefits and side effects discussed. Verbal consent given.
--- NOTE | 2019-12-16 15:11 | EKG ---
Test Reason : Blood Pressure : / mmHG Vent. Rate : 087 BPM Atrial Rate : 087 BPM P-R Int : 154 ms QRS Dur : 084 ms QT Int : 370 ms P-R-T Axes : 075 049 018 degrees QTc Int : 445 ms NORMAL SINUS RHYTHM NORMAL ECG WHEN COMPARED WITH ECG OF 12-AUG-2017 10:44, VENT. RATE HAS INCREASED BY 30 BPM Confirmed by MD Nugent Daniel ([id number]) on 12/16/2019 3:11:03 PM Referred By: Confirmed By:Leobardo Nugent MD
[2019-12-16 17:13] LABS: URINE APPEARANCE CLEAR; URINE BILIRUBIN NEGATIVE (NEGATIVE); URINE COLOR YELLOW; URINE GLUCOSE (UA) NEGATIVE (NEGATIVE); URINE KETONE NEGATIVE (NEGATIVE); URINE LEUK ESTERASE NEGATIVE (NEGATIVE); URINE NITRITE NEGATIVE (NEGATIVE); URINE PROTEIN NEGATIVE (NEGATIVE)
[2019-12-16] MEDS: THIAMINE HCL 100 MG TABLET (FP) PO SCH (22:20)
[2019-12-16] MEDS: QUEtiapine FUMARATE 200 MG TABLET PO SCH (22:20)
[2019-12-16] MEDS: diazePAM 5 MG TABLET PO ONE (22:20)
[2019-12-17] MEDS: diazePAM 5 MG TABLET PO SCH ×3 (05:57→22:11)
--- NOTE | 2019-12-17 09:27 | PN ---
S CIWA - CIWA Score Nausea/Vomitin-Mild Nausea/No Vomiting Muscle Tremors: 2 Anxiety: 1-Mildly Anxious Agitation: 1-Slight > Activity Paroxysmal Sweats: 1-Minimal Palms Moist Orientation: 0-Oriented Tacttile Disturbances: 0-None Auditory Disturbances: 0-None Visual Disturbances: 1-Very Mild Sensitivity Headache: 1-Very Mild CIWA-Ar Total Score: 8 S Progress Note (SOAP) Subjective: 59 years old male was admitted on 12/15/19 for alcohol withdrawal sx management treating with valium detox regiment ate breakfast in room feed self no trouble chewing swallowing resting in bed comfortably encourage mr ingram to discuss aftercare with staff Objective: 12/17/19 09:30 Vital Signs - 24 hr 12/16/19 12/16/19 12/16/19 12:54 18:26 20:41 Temperature 97.5 F L 97.3 F L 97.1 F L Pulse Rate 80 79 80 Respiratory 20 17 17 Rate Blood Pressure 149/74 119/67 141/87 O2 Sat by Pulse 99 99 98 Oximetry (%) 12/17/19 12/17/19 06:10 08:56 Temperature 98.2 F 97.7 F Pulse Rate 69 83 Respiratory 18 18 Rate Blood Pressure 139/72 132/84 O2 Sat by Pulse 97 97 Oximetry (%) Laboratory Tests 12/16/19 12/16/19 12/16/19 07:30 07:30 07:30 WBC 5.8 RBC 4.60 Hgb 12.3 Hct 38.3 MCV 83.1 MCH 26.8 MCHC 32.2 RDW 16.5 H Plt Count 300 MPV 8.2 Sodium 140 Potassium 3.7 Chloride 105 Carbon Dioxide 28 Anion Gap 7 L BUN 10.5 Creatinine 1.0 Est GFR (CKD-EPI)AfAm 96.40 Est GFR (CKD-EPI)NonAf 83.18 Random Glucose 150 H Calcium 9.0 Total Bilirubin 0.7 AST 15 ALT 24 Alkaline Phosphatase 99 Total Protein 7.1 Albumin 3.3 L Urine Color Urine Appearance Urine pH Ur Specific [place] Urine Protein Urine Glucose (UA) Urine Ketones Urine Blood Urine Nitrite Urine Bilirubin Urine Urobilinogen Ur Leukocyte Esterase Syphilis Serology Non-reactive 12/16/19 15:27 WBC RBC Hgb Hct MCV MCH MCHC RDW Plt Count MPV Sodium Potassium Chloride Carbon Dioxide Anion Gap BUN Creatinine Est GFR (CKD-EPI)AfAm Est GFR (CKD-EPI)NonAf Random Glucose Calcium Total Bilirubin AST ALT Alkaline Phosphatase Total Protein Albumin Urine Color Yellow Urine Appearance Clear Urine pH 8.0 D Ur Specific [place] 1.019 Urine Protein Negative Urine Glucose (UA) Negative Urine Ketones Negative Urine Blood Negative Urine Nitrite Negative Urine Bilirubin Negative Urine Urobilinogen 1.0 Ur Leukocyte Esterase Negative Syphilis Serology 12/17/19 09:36 glucose elevation fasting pending Assessment: 12/17/19 09:36 alcohol withdrawal Plan: valium regiment
[2019-12-17] MEDS: BACITRACIN 0.9 GM PACKET TP SCH (09:44)
[2019-12-17] MEDS: PRENATAL VITAMINS W/ FOLIC ACID TABLET (FP) PO SCH (09:44)
[2019-12-17] MEDS: NICOTINE 7 MG/24 HOURS TOPICAL PATCH TD SCH (09:44)
[2019-12-17] MEDS: amLODIPine BESYLATE 10 MG TABLET (FP) PO SCH (09:44)
--- NOTE | 2019-12-17 18:02 | PN ---
WILLIAM Progress Note Note: Psychiatry Attending's note : Approached by patient. Mr Russ came spontaneously to consultation office. Reason : request for resumption of doxepin at bedtime. Chart reviewed. guard sergeant Domingo Garcia's note of 12/16/19 : read. Medications reconciliation list reviewed. Doxepin is confirmed. Side effects/benefits discussed with the patient. Consent granted. Action : doxepin 25 mg po hs. Resumed at patient's request.
[2019-12-17] MEDS: THIAMINE HCL 100 MG TABLET (FP) PO SCH (22:11)
[2019-12-17] MEDS: DOXEPIN HCL 25 MG CAPSULE PO SCH (22:11)
[2019-12-17] MEDS: QUEtiapine FUMARATE 200 MG TABLET PO SCH (22:11)
[2019-12-18] MEDS: diazePAM 5 MG TABLET PO SCH ×2 (05:38→17:53)
[2019-12-18] MEDS ORDERED: ERGOCALCIFEROL (VIT D2) 50,000 UNIT (1.25 MG) CAPSULE PO SCH (10:00)
[2019-12-18] MEDS: BACITRACIN 0.9 GM PACKET TP SCH (10:21)
[2019-12-18] MEDS: amLODIPine BESYLATE 10 MG TABLET (FP) PO SCH (10:22)
[2019-12-18] MEDS: NICOTINE 7 MG/24 HOURS TOPICAL PATCH TD SCH (10:22)
[2019-12-18] MEDS: PRENATAL VITAMINS W/ FOLIC ACID TABLET (FP) PO SCH (10:22)
--- NOTE | 2019-12-18 10:45 | PN ---
[facility] CIWA - CIWA Score Nausea/Vomitin-Mild Nausea/No Vomiting Muscle Tremors: 2 Anxiety: 2 Agitation: 2 Paroxysmal Sweats: No Perspiration Orientation: 0-Oriented Tacttile Disturbances: 1-Very Mild Itch/Numbness Auditory Disturbances: 0-None Visual Disturbances: 0-None Headache: 1-Very Mild CIWA-Ar Total Score: 9 BHS Progress Note (SOAP) Subjective: alert,irritable,anxious,interrupted sleep,aching pain Objective: 12/18/19 14:49 Vital Signs Temperature 96.9 F L 12/18/19 12:36 Pulse Rate 87 12/18/19 12:36 Respiratory Rate 18 12/18/19 12:36 Blood Pressure 151/83 12/18/19 12:36 O2 Sat by Pulse Oximetry (%) 95 12/18/19 12:36 Assessment: 12/18/19 14:49 withdrawal symptom Plan: continue detox valium regimen
[2019-12-18] MEDS: DOXEPIN HCL 25 MG CAPSULE PO SCH (22:08)
[2019-12-18] MEDS: THIAMINE HCL 100 MG TABLET (FP) PO SCH (22:08)
[2019-12-18] MEDS: QUEtiapine FUMARATE 200 MG TABLET PO SCH (22:08)
[2019-12-19] MEDS: diazePAM 5 MG TABLET PO ONE (05:05)
[2019-12-19 09:56] VITALS: BP 134/76; PULSE 80; TEMP 97.5
[2019-12-19] MEDS: PRENATAL VITAMINS W/ FOLIC ACID TABLET (FP) PO SCH (10:39)
[2019-12-19] MEDS: amLODIPine BESYLATE 10 MG TABLET (FP) PO SCH (10:39)
[2019-12-19] MEDS: NICOTINE 7 MG/24 HOURS TOPICAL PATCH TD SCH (10:39)
[2019-12-19] MEDS: BACITRACIN 0.9 GM PACKET TP SCH (10:40)
--- NOTE | 2019-12-19 11:07 | DS ---
[facility] Detox Discharge Summary Admission Date: 12/15/19 Discharge Date: 12/19/19 - History Present History: Alcohol Dependence, Cocaine Dependence Additional Comments: alert,oriented x 3 ambulation on the unit lung clear on auscultation bilaterally abdomen soft,no pain,no tenderness stable for discharge no withdrawal symptom follow up with after care program [facility] as arrangement chest x ray done on 12/17/2019 at [facility] noted,no active disease initial glucose 150 mg,no fasting glucose done patient refused,advise diet modification,no sugar, bgm monitoring daily in rehab patient understood total time spending on discharge 35 minutes Pertinent Past History: hypertension nicotine dependence history of depression - Physical Exam Results Vital Signs: Vital Signs Temperature 97.5 F L 12/19/19 08:30 Pulse Rate 80 12/19/19 08:30 Respiratory Rate 18 12/19/19 08:30 Blood Pressure 134/76 12/19/19 08:30 O2 Sat by Pulse Oximetry (%) 99 12/19/19 08:30 Pertinent Admission Physical Exam Findings: withdrawal signs and symptom Laboratory Last Values WBC 5.8 K/mm3 (4.0-10.0) 12/16/19 07:30 RBC 4.60 M/mm3 (4.00-5.60) 12/16/19 07:30 Hgb 12.3 GM/dL (11.7-16.9) 12/16/19 07:30 Hct 38.3 % (35.4-49) 12/16/19 07:30 MCV 83.1 fl (80-96) 12/16/19 07:30 MCH 26.8 pg (25.7-33.7) 12/16/19 07:30 MCHC 32.2 g/dl (32.0-35.9) 12/16/19 07:30 RDW 16.5 % (11.9-15.9) H 12/16/19 07:30 Plt Count 300 K/MM3 (134-434) 12/16/19 07:30 MPV 8.2 fl (7.5-11.1) 12/16/19 07:30 Sodium 140 mmol/L (136-145) 12/16/19 07:30 Potassium 3.7 mmol/L (3.5-5.1) 12/16/19 07:30 Chloride 105 mmol/L (98-107) 12/16/19 07:30 Carbon Dioxide 28 mmol/L (21-32) 12/16/19 07:30 Anion Gap 7 MMOL/L (8-16) L 12/16/19 07:30 BUN 10.5 mg/dL (7-18) 12/16/19 07:30 Creatinine 1.0 mg/dL (0.55-1.3) 12/16/19 07:30 Est GFR (CKD-EPI)AfAm 96.40 12/16/19 07:30 Est GFR (CKD-EPI)NonAf 83.18 12/16/19 07:30 Random Glucose 150 mg/dL (74-106) H 12/16/19 07:30 Calcium 9.0 mg/dL (8.5-10.1) 12/16/19 07:30 Total Bilirubin 0.7 mg/dL (0.2-1) 12/16/19 07:30 AST 15 U/L (15-37) 12/16/19 07:30 ALT 24 U/L (13-61) 12/16/19 07:30 Alkaline Phosphatase 99 U/L (45-117) 12/16/19 07:30 Total Protein 7.1 g/dl (6.4-8.2) 12/16/19 07:30 Albumin 3.3 g/dl (3.4-5.0) L 12/16/19 07:30 Urine Color Yellow 12/16/19 15:27 Urine Appearance Clear 12/16/19 15:27 Urine pH 8.0 (5.0-8.0) D 12/16/19 15:27 Ur Specific [place] 1.019 (1.010-1.035) 12/16/19 15:27 Urine Protein Negative (NEGATIVE) 12/16/19 15:27 Urine Glucose (UA) Negative (NEGATIVE) 12/16/19 15:27 Urine Ketones Negative (NEGATIVE) 12/16/19 15: Urine Blood Negative (NEGATIVE) 12/16/19 15: Urine Nitrite Negative (NEGATIVE) 12/16/19 15:27 Urine Bilirubin Negative (NEGATIVE) 12/16/19 15:27 Urine Urobilinogen 1.0 mg/dL (0.2-1.0) 12/16/19 15:27 Ur Leukocyte Esterase Negative (NEGATIVE) 12/16/19 15:27 Syphilis Serology Non-reactive (NONREACTIVE) 12/16/19 07:30 COVID-19 (TRISH) Not detected (Not Detected) 12/18/19 11:30 patient refused fasting blood glucose should be monitoring bgm in rehab chest xray of 12/17/19 noted - Treatment Hospital Course: Detox Protocol Followed, Detoxed Safely, Responded well, Discharged Condition Good, Rehab Referral Accepted - Medication Discharge Medications: Ambulatory Orders Amlodipine Besylate [Norvasc -] 10 mg PO DAILY 12/15/19 Doxepin HCl [Sinequan -] 25 mg PO HS 12/15/19 Ergocalciferol (Vitamin D2) [Vitamin D2] 50,000 unit PO WEEKLY 12/15/19 Quetiapine Fumarate [Seroquel -] 200 mg PO HS 12/15/19 - Diagnosis (1) Alcohol dependence with uncomplicated withdrawal Current Visit: Yes Status: Acute (2) Nicotine dependence Current Visit: Yes Status: Acute Qualifiers: Nicotine product type: cigarettes Substance use status: in withdrawal Qualified Code(s): F17.213 - Nicotine dependence, cigarettes, with withdrawal (3) Anxiety Current Visit: Yes Status: Chronic (4) Depression Current Visit: Yes Status: Chronic Qualifiers: Depression Type: unspecified Qualified Code(s): F32.9 - Major depressive disorder, single episode, unspecified (5) HTN (hypertension) Current Visit: Yes Status: Chronic Qualifiers: Hypertension type: essential hypertension Qualified Code(s): I10 - Essential (primary) hypertension (6) PTSD (post-traumatic stress disorder) Current Visit: Yes Status: Chronic (7) PPD positive Current Visit: No Status: Chronic
--- NOTE | 2019-12-19 11:07 | PN ---
[facility] CIWA - CIWA Score Nausea/Vomitin-No Nausea/No Vomiting Muscle Tremors: None Anxiety: 1-Mildly Anxious Agitation: 0-Normal Activity Paroxysmal Sweats: No Perspiration Orientation: 0-Oriented Tacttile Disturbances: 0-None Auditory Disturbances: 0-None Visual Disturbances: 0-None Headache: 0-None Present CIWA-Ar Total Score: 1 S Progress Note (SOAP) Subjective: alert,no complaint Objective: 12/19/19 13:46 Vital Signs Temperature 97.5 F L 12/19/19 08:30 Pulse Rate 80 12/19/19 08:30 Respiratory Rate 18 12/19/19 08:30 Blood Pressure 134/76 12/19/19 08:30 O2 Sat by Pulse Oximetry (%) 99 12/19/19 08:30 12/19/19 13:46 Laboratory Last Values WBC 5.8 K/mm3 (4.0-10.0) 12/16/19 07:30 RBC 4.60 M/mm3 (4.00-5.60) 12/16/19 07:30 Hgb 12.3 GM/dL (11.7-16.9) 12/16/19 07:30 Hct 38.3 % (35.4-49) 12/16/19 07:30 MCV 83.1 fl (80-96) 12/16/19 07:30 MCH 26.8 pg (25.7-33.7) 12/16/19 07:30 MCHC 32.2 g/dl (32.0-35.9) 12/16/19 07:30 RDW 16.5 % (11.9-15.9) H 12/16/19 07:30 Plt Count 300 K/MM3 (134-434) 12/16/19 07:30 MPV 8.2 fl (7.5-11.1) 12/16/19 07:30 Sodium 140 mmol/L (136-145) 12/16/19 07:30 Potassium 3.7 mmol/L (3.5-5.1) 12/16/19 07:30 Chloride 105 mmol/L (98-107) 12/16/19 07:30 Carbon Dioxide 28 mmol/L (21-32) 12/16/19 07:30 Anion Gap 7 MMOL/L (8-16) L 12/16/19 07:30 BUN 10.5 mg/dL (7-18) 12/16/19 07:30 Creatinine 1.0 mg/dL (0.55-1.3) 12/16/19 07:30 Est GFR (CKD-EPI)AfAm 96.40 12/16/19 07:30 Est GFR (CKD-EPI)NonAf 83.18 12/16/19 07:30 Random Glucose 150 mg/dL (74-106) H 12/16/19 07:30 Calcium 9.0 mg/dL (8.5-10.1) 12/16/19 07:30 Total Bilirubin 0.7 mg/dL (0.2-1) 12/16/19 07:30 AST 15 U/L (15-37) 12/16/19 07:30 ALT 24 U/L (13-61) 12/16/19 07:30 Alkaline Phosphatase 99 U/L (45-117) 12/16/19 07:30 Total Protein 7.1 g/dl (6.4-8.2) 12/16/19 07:30 Albumin 3.3 g/dl (3.4-5.0) L 12/16/19 07:30 Urine Color Yellow 12/16/19 15:27 Urine Appearance Clear 12/16/19 15:27 Urine pH 8.0 (5.0-8.0) D 12/16/19 15:27 Ur Specific [place] 1.019 (1.010-1.035) 12/16/19 15:27 Urine Protein Negative (NEGATIVE) 12/16/19 15:27 Urine Glucose (UA) Negative (NEGATIVE) 12/16/19 15:27 Urine Ketones Negative (NEGATIVE) 12/16/19 15:27 Urine Blood Negative (NEGATIVE) 12/16/19 15:27 Urine Nitrite Negative (NEGATIVE) 12/16/19 15:27 Urine Bilirubin Negative (NEGATIVE) 12/16/19 15:27 Urine Urobilinogen 1.0 mg/dL (0.2-1.0) 12/16/19 15:27 Ur Leukocyte Esterase Negative (NEGATIVE) 12/16/19 15:27 Syphilis Serology Non-reactive (NONREACTIVE) 12/16/19 07:30 COVID-19 (TRISH) Not detected (Not Detected) 12/18/19 11:30 Assessment: 12/19/19 13:47 detox completed,no withdrawal symptom Plan: stable for discharge today to rehab
[2019-12-20] MEDS ORDERED: diazePAM 5 MG TABLET PO ONE (06:00)
== END 2019-12-19 14:12 | disposition other institution (70) | DRG 774 ==
LOC: YASAS 12:08 → Y3N 17:35
PROVIDERS: ADMIT Allergy & Immunology; ATTEND Allergy & Immunology
PROC: HZ2ZZZZ Detoxification Services for Substance Abuse Treatment (ICD-10-PCS; principal; 2019-12-15)
DX: F10.230 Alcohol dependence with withdrawal, uncomplicated (principal); F14.20 Cocaine dependence, uncomplicated; F17.210 Nicotine dependence, cigarettes, uncomplicated; F19.282 Other psychoactive substance dependence with psychoactive substance-induced sleep disorder; F19.24 Other psychoactive substance dependence with psychoactive substance-induced mood disorder; F43.10 Post-traumatic stress disorder, unspecified; F32.9 Major depressive disorder, single episode, unspecified; F41.9 Anxiety disorder, unspecified; I10 Essential (primary) hypertension; R76.11 Nonspecific reaction to tuberculin skin test without active tuberculosis; Z88.0 Allergy status to penicillin; Z56.0 Unemployment, unspecified; Z59.0 Homelessness
CPT/HCPCS: 36415; 71046-TC-FY; 80053; 81003; 85027; 86780; 93005; 93010; J0735; U0003

== ENCOUNTER 2019-12-19 14:28 | Inpatient (IN) | payer OTHER ==
--- NOTE | 2019-12-19 15:32 | HP ---
[facility] Rehab Assess/Revision - Admission History Admitted to Rehab from: [facility] Date of Admission to Rehab: 12/19/19 - Vital signs Vital Signs: Vital Signs Period Temp Pulse Resp BP Sys/Day Pulse Ox Last 24 Hr 97.8 F 81 16 148/76 97 - Findings Detox History & Physical reviewed: Yes Concur with findings: Yes Comments/Additional Findings: Pt is a 59 y/o s/p detox, hx AUD referred to rehab. Reports he has no PCP and goes to the ER for care-"depends on where i am". PMHx:HTN,Sciatica. Psych Hx:PTSD,Anxiety,Depression. Alert o x 3. nad. oob ambulating with steady gait. extremities:no edema, skin intact. Increase po fluids. maintain safety Inpatient Rehab Admission - Rehab Decision to Admit Inpatient rehab admission?: Yes - Initial Determination Are CD services needed?: Yes Free of communicable disease: Yes Not in need of hospitalization: Yes - Rehab Admission Criteria Previous failed treatment: Yes Poor recovery environment: Yes Comorbidities: Yes Lacks judgement: Yes Patient is meeting Inpatient Rehab admission criteria:: Yes
[2019-12-19] MEDS ORDERED: MAGNESIUM CITRATE 300 ML BOTTLE PO PRN (15:33)
[2019-12-19] MEDS ORDERED: MAGNESIUM HYDROX 2400MG/30ML ORAL SUSPENSION 30 ML CUP PO PRN (15:33)
[2019-12-19] MEDS ORDERED: LOPERAMIDE HCL 2 MG CAPSULE PO PRN (15:33)
[2019-12-19] MEDS ORDERED: guaiFENesin 200 MG/10 ML 10 ML UNIT-DOSE CUPS PO PRN (15:33)
[2019-12-19] MEDS ORDERED: MAG HYDROX/AL HYDROX/SIMETH 30 ML UNIT-DOSE CUP PO PRN (15:33)
[2019-12-19] MEDS ORDERED: MENTHOL/PHENOL 1 EACH UD MM PRN (15:33)
[2019-12-19] MEDS ORDERED: IBUPROFEN 400 MG TABLET (FP) PO PRN (15:33)
[2019-12-19] MEDS ORDERED: NICOTINE POLACRILEX 4 MG GUM BUC PRN (15:33)
[2019-12-19] MEDS ORDERED: ACETAMINOPHEN 325 MG TABLET (FP) PO PRN (15:33)
[2019-12-19] MEDS ORDERED: P-EPHED 60MG/TRIPROLIDI 2.5MG TABLET PO PRN (15:33)
--- NOTE | 2019-12-19 16:14 | CONSULT ---
[facility] Psychiatric Consult - Data Date of interview: 12/19/19 Admission source: Transfer from [address] [place] [address]
--- NOTE | 2019-12-19 17:41 | CONSULT ---
[facility] Psychiatric Consult - Data Date of interview: 12/19/19 Admission source: Transfer from [address] [place] [address]. Identifying data: Detoxification completed at [address] [place] [address]. Patient has now entered rehabilitation treatment at [address] for continuity of care (GALILEO treatment + management of co-morbid PTSD and insomnia). Patient is single, no dependents (son in a motor vehicle accident + daughter of suicide; both losses occurred several years ago), homeless, unemployed and deprived of financial assistance. Substance Abuse History: Discussed with patient. GALILEO profile as follows : Smoking history: Current every day smoker. Have you smoked in the past 12 months: Yes. Approximately how many cigarettes per day: 20. Cigars Per Day: 0. Hx Chewing Tobacco Use: No. Initiated information on smoking cessation: Yes. 'Breaking Loose' booklet given: 12/15/19. - Substance & Tx. History. Hx Alcohol Use: Yes. Hx Substance Use: Yes. Substance Use Type: Alcohol. Hx Substance Use Treatment: Yes ([facility] March 2019). - Substances ab used. Alcohol. Substance route: Oral. Frequency: Daily. Amount used: 2 pints of [place]. Age of first use: 14. Date of last use: 12/15/19. Crack. Substance route: Smoking. Frequency: Daily. Amount used: $100. Age of first use: 24. Date of last use: 12/15/19. Medical History: Medical profile is consistent with positive PPD and hypertension. Psychiatric History: Patient endorses history of two psychiatric hospitalizations (both at [facility] in [place]). Last hospitalized in November 2019. Diagnosed with PTSD and insomnia. Mr Russ was discharged on seroquel 200 mg/hs + doxepin 25 mg/hs. Did not connect with OPD referral (due to restrictions imposed during current COVID-19 pandemic). Patient denies history of suicide attempts. Physical/Sexual Abuse/Trauma History: Distant traumas : deaths of patient's son and daughter (years ago). Additional Comment: Urine drug screen results: JAYLAN-Cocaine. Noted on admission to [address] [place] [address]. Mental Status Exam - Mental Status Exam Alert and Oriented to: Time, Place, Person Cognitive Function: Good Patient Appearance: Well Groomed Mood: Hopeful, Euthymic Affect: Appropriate, Normal Range Patient Behavior: Appropriate, Cooperative Speech Pattern: Clear, Appropriate Voice Loudness: Normal Thought Process: Intact, Goal Oriented Thought Disorder: Not Present Hallucinations: Denies Suicidal Ideation: Denies Homicidal Ideation: Denies Insight/Judgement: Fair Sleep: Well (on doxepin + seroquel) Appetite: Good Gait/Station: Normal Psychiatric Findings - Problem List ([place] 1, 2,3) (1) Alcohol dependence Current Visit: Yes Status: Chronic (2) Cocaine dependence Current Visit: Yes Status: Chronic Qualifiers: Substance use status: uncomplicated Qualified Code(s): F14.20 - Cocaine dependence, uncomplicated (3) Nicotine dependence Current Visit: Yes Status: Chronic Qualifiers: Nicotine product type: cigarettes Substance use status: in withdrawal Qualified Code(s): F17.213 - Nicotine dependence, cigarettes, with withdrawal (4) Substance induced mood disorder Current Visit: Yes Status: Chronic (5) PTSD (post-traumatic stress disorder) Current Visit: Yes Status: Chronic (6) Insomnia Current Visit: Yes Status: Chronic - Initial Treatment Plan Initial Treatment Plan: Psychoeducation. Sleep hygiene. Rehabilitation. Motivational counseling. Resumed : doxepin 25 mg po hs + seroquel 200 mg po hs. Side effects/benefits discussed with the patient. Consent granted. Observation.
[2019-12-19] MEDS: THIAMINE HCL 100 MG TABLET (FP) PO SCH (21:35)
[2019-12-19] MEDS: MELATONIN 5 MG TABLETS PO SCH (21:35)
[2019-12-19] MEDS: DOXEPIN HCL 25 MG CAPSULE PO SCH (21:35)
[2019-12-19] MEDS: hydrOXYzine PAMOATE 25 MG CAPSULE (FP) PO PRN (21:35)
[2019-12-19] MEDS: QUEtiapine FUMARATE 200 MG TABLET PO SCH (21:35)
[2019-12-20] MEDS ORDERED: ERGOCALCIFEROL (VIT D2) 50,000 UNIT (1.25 MG) CAPSULE PO SCH (10:00)
[2019-12-20] MEDS: hydrOXYzine PAMOATE 25 MG CAPSULE (FP) PO PRN ×2 (10:33→21:22)
[2019-12-20] MEDS: PRENATAL VITAMINS W/ FOLIC ACID TABLET (FP) PO SCH (10:33)
[2019-12-20] MEDS: amLODIPine BESYLATE 10 MG TABLET (FP) PO SCH (10:33)
[2019-12-20] MEDS: NICOTINE 21 MG/24 HOURS TOPICAL PATCH TD SCH ×2 (10:35→10:36)
[2019-12-20] MEDS: DOXEPIN HCL 25 MG CAPSULE PO SCH (21:22)
[2019-12-20] MEDS: THIAMINE HCL 100 MG TABLET (FP) PO SCH (21:22)
[2019-12-20] MEDS: MELATONIN 5 MG TABLETS PO SCH (21:22)
[2019-12-20] MEDS: QUEtiapine FUMARATE 200 MG TABLET PO SCH (21:22)
--- NOTE | 2019-12-21 08:58 | PN ---
[facility] Progress Note Note: Dietary consult done on patient here in rehab and requesting FBS due to Random glu 150 mg/dl in detox. No hx of DM. Vital Signs - 24 hr 12/20/19 12/21/19 19:19 07:57 Temperature 97.5 F L Pulse Rate 84 Respiratory 18 Rate Blood Pressure 125/78 O2 Sat by Pulse 98 98 Oximetry (%) .
[2019-12-21] MEDS: NICOTINE 21 MG/24 HOURS TOPICAL PATCH TD SCH (09:27)
[2019-12-21] MEDS: hydrOXYzine PAMOATE 25 MG CAPSULE (FP) PO PRN ×2 (09:27→21:17)
[2019-12-21] MEDS: PRENATAL VITAMINS W/ FOLIC ACID TABLET (FP) PO SCH (09:27)
[2019-12-21] MEDS: amLODIPine BESYLATE 10 MG TABLET (FP) PO SCH (09:27)
[2019-12-21] MEDS: MELATONIN 5 MG TABLETS PO SCH (21:17)
[2019-12-21] MEDS: THIAMINE HCL 100 MG TABLET (FP) PO SCH (21:17)
[2019-12-21] MEDS: QUEtiapine FUMARATE 200 MG TABLET PO SCH (21:17)
[2019-12-21] MEDS: DOXEPIN HCL 25 MG CAPSULE PO SCH (21:17)
[2019-12-22] MEDS: NICOTINE 21 MG/24 HOURS TOPICAL PATCH TD SCH (09:47)
[2019-12-22] MEDS: amLODIPine BESYLATE 10 MG TABLET (FP) PO SCH (09:47)
[2019-12-22] MEDS: hydrOXYzine PAMOATE 25 MG CAPSULE (FP) PO PRN ×2 (09:47→21:25)
[2019-12-22] MEDS: PRENATAL VITAMINS W/ FOLIC ACID TABLET (FP) PO SCH (09:48)
[2019-12-22] MEDS: QUEtiapine FUMARATE 200 MG TABLET PO SCH (21:25)
[2019-12-22] MEDS: DOXEPIN HCL 25 MG CAPSULE PO SCH (21:25)
[2019-12-22] MEDS: THIAMINE HCL 100 MG TABLET (FP) PO SCH (21:25)
[2019-12-22] MEDS: MELATONIN 5 MG TABLETS PO SCH (21:25)
[2019-12-23] MEDS: PRENATAL VITAMINS W/ FOLIC ACID TABLET (FP) PO SCH (09:58)
[2019-12-23] MEDS: NICOTINE 21 MG/24 HOURS TOPICAL PATCH TD SCH (09:58)
[2019-12-23] MEDS: amLODIPine BESYLATE 10 MG TABLET (FP) PO SCH (09:58)
[2019-12-23] MEDS: hydrOXYzine PAMOATE 25 MG CAPSULE (FP) PO PRN ×2 (09:59→21:34)
[2019-12-23] MEDS: THIAMINE HCL 100 MG TABLET (FP) PO SCH (21:34)
[2019-12-23] MEDS: DOXEPIN HCL 25 MG CAPSULE PO SCH (21:34)
[2019-12-23] MEDS: MELATONIN 5 MG TABLETS PO SCH (21:34)
[2019-12-23] MEDS: QUEtiapine FUMARATE 200 MG TABLET PO SCH (21:34)
[2019-12-24] MEDS: PRENATAL VITAMINS W/ FOLIC ACID TABLET (FP) PO SCH (10:34)
[2019-12-24] MEDS: amLODIPine BESYLATE 10 MG TABLET (FP) PO SCH (10:34)
[2019-12-24] MEDS: NICOTINE 21 MG/24 HOURS TOPICAL PATCH TD SCH (10:34)
[2019-12-24] MEDS: DOXEPIN HCL 25 MG CAPSULE PO SCH (21:29)
[2019-12-24] MEDS: QUEtiapine FUMARATE 200 MG TABLET PO SCH (21:29)
[2019-12-24] MEDS: THIAMINE HCL 100 MG TABLET (FP) PO SCH (21:29)
[2019-12-24] MEDS: hydrOXYzine PAMOATE 25 MG CAPSULE (FP) PO PRN (21:29)
[2019-12-24] MEDS: MELATONIN 5 MG TABLETS PO SCH (21:29)
[2019-12-25] MEDS ORDERED: ERGOCALCIFEROL (VIT D2) 50,000 UNIT (1.25 MG) CAPSULE PO SCH (10:00)
[2019-12-25] MEDS: hydrOXYzine PAMOATE 25 MG CAPSULE (FP) PO PRN ×2 (10:31→21:27)
[2019-12-25] MEDS: amLODIPine BESYLATE 10 MG TABLET (FP) PO SCH (10:31)
[2019-12-25] MEDS: NICOTINE 21 MG/24 HOURS TOPICAL PATCH TD SCH (10:31)
[2019-12-25] MEDS: PRENATAL VITAMINS W/ FOLIC ACID TABLET (FP) PO SCH (10:31)
[2019-12-25] MEDS: THIAMINE HCL 100 MG TABLET (FP) PO SCH (21:27)
[2019-12-25] MEDS: MELATONIN 5 MG TABLETS PO SCH (21:27)
[2019-12-25] MEDS: DOXEPIN HCL 25 MG CAPSULE PO SCH (21:27)
[2019-12-25] MEDS: QUEtiapine FUMARATE 200 MG TABLET PO SCH (21:27)
[2019-12-26] MEDS: NICOTINE 21 MG/24 HOURS TOPICAL PATCH TD SCH (09:48)
[2019-12-26] MEDS: amLODIPine BESYLATE 10 MG TABLET (FP) PO SCH (09:48)
[2019-12-26] MEDS: PRENATAL VITAMINS W/ FOLIC ACID TABLET (FP) PO SCH (09:49)
[2019-12-26] MEDS: hydrOXYzine PAMOATE 25 MG CAPSULE (FP) PO PRN ×2 (09:49→21:30)
--- NOTE | 2019-12-26 11:57 | PN ---
[facility] Progress Note Note: Pt reports he was prescribed Vit D 50,000 IU 4 tabs and takes it every Tuesday. Reports took one tab before [facility] admission. Pt took one tab while in detox and one tab here yesterday. Pt reports he has the bottle of Vit D and his Norvasc 10 mg po daily in his property and does not need Rx upon discharge.
--- NOTE | 2019-12-26 14:57 | PN ---
[facility] Progress Note Note: Patient is scheduled for discharge on 12/28/19. Scripts for 30 days supply of medications(Doxepin 25 mg/hs, Seroquel 200 mg/hs) will be electronically transmitted to [facility], [address] [place] [id number]
[2019-12-26] MEDS: MELATONIN 5 MG TABLETS PO SCH (21:30)
[2019-12-26] MEDS: QUEtiapine FUMARATE 200 MG TABLET PO SCH (21:30)
[2019-12-26] MEDS: DOXEPIN HCL 25 MG CAPSULE PO SCH (21:30)
[2019-12-26] MEDS: THIAMINE HCL 100 MG TABLET (FP) PO SCH (21:31)
[2019-12-27] MEDS: hydrOXYzine PAMOATE 25 MG CAPSULE (FP) PO PRN ×2 (10:32→21:38)
[2019-12-27] MEDS: NICOTINE 21 MG/24 HOURS TOPICAL PATCH TD SCH (10:32)
[2019-12-27] MEDS: amLODIPine BESYLATE 10 MG TABLET (FP) PO SCH (10:32)
[2019-12-27] MEDS: PRENATAL VITAMINS W/ FOLIC ACID TABLET (FP) PO SCH (10:33)
[2019-12-27] MEDS: MELATONIN 5 MG TABLETS PO SCH (21:37)
[2019-12-27] MEDS: DOXEPIN HCL 25 MG CAPSULE PO SCH (21:37)
[2019-12-27] MEDS: THIAMINE HCL 100 MG TABLET (FP) PO SCH (21:37)
[2019-12-27] MEDS: QUEtiapine FUMARATE 200 MG TABLET PO SCH (21:37)
[2019-12-28 06:55] VITALS: BP 114/74; PULSE 81; TEMP 97.7
[2019-12-28] MEDS ORDERED: MASKS NR ONE (07:59)
[2019-12-28] MEDS: NICOTINE 21 MG/24 HOURS TOPICAL PATCH TD SCH (09:27)
[2019-12-28] MEDS: amLODIPine BESYLATE 10 MG TABLET (FP) PO SCH (09:27)
[2019-12-28] MEDS: hydrOXYzine PAMOATE 25 MG CAPSULE (FP) PO PRN (09:27)
[2019-12-28] MEDS: PRENATAL VITAMINS W/ FOLIC ACID TABLET (FP) PO SCH (09:27)
--- NOTE | 2019-12-28 11:50 | DS ---
[facility] Rehab Discharge Summary - [facility] Rehab Discharge Summary Admission Date: 12/19/19 Discharge Date: 12/28/19 - History Present History: Alcohol dependence, Cocaine dependence Pertinent Past History: HTN Vitamin D defficiency(in treatment) PTSD - Discharge Physical Exam Vital Signs: Vital Signs Temperature 97.7 F 12/28/19 06:21 Pulse Rate 81 12/28/19 06:21 Respiratory Rate 18 12/28/19 06:21 Blood Pressure 114/74 12/28/19 06:21 O2 Sat by Pulse Oximetry (%) 97 12/28/19 06:21 General;WDWN male, Alert o x 3, nad Cardiac:s1 s2,rrr lungs:ctab abdomen:soft, +bs,nt,nd MSK/Skin:Active FROM, all limbs; oob ambulating with steady gait; no edema, skin intact. Pertinent Admission Physical Exam Findings: Laboratory Tests 12/22/19 12/23/19 12/24/19 07:09 06:48 06:31 POC Glucometer 270 164 120 12/25/19 12/27/19 07:10 06:44 POC Glucometer 110 120 - Treatment Discharge Condition: Discharge condition good, Rehabilitated safely, Responded well, Outpatient referral accepted Hospital Course: Pt is a 59 y/o male admitted to rehab and discharged today. Pt reports he will find a new PCP because switched his benefit and once situated in [place], [place]. CD aftercare referral accepted to [facility] - Medication Discharge Medications: Ambulatory Orders Ergocalciferol (Vitamin D2) [Vitamin D2] 50,000 unit PO TH #1 cap 12/19/19 Amlodipine Besylate 10 mg PO DAILY 12/26/19 Doxepin HCl [Sinequan -] 25 mg PO HS #30 capsule 12/26/19 Quetiapine Fumarate [Seroquel -] 200 mg PO HS #30 tablet 12/26/19 - Medication-Assisted Treatment (MAT) Medication-Assisted Treatment (MAT): No - Discharge Instructions Diet, activity, other medical instructions: Diet:SONAL Activity:oob ad yuliya Other medical instructions:follow up with PCP in [facility] as needed. - Diagnosis (1) Alcohol dependence Status: Chronic Qualifiers: Substance use status: uncomplicated Qualified Code(s): F10.20 - Alcohol dependence, uncomplicated (2) Cocaine dependence Status: Chronic Qualifiers: Substance use status: uncomplicated Qualified Code(s): F14.20 - Cocaine dependence, uncomplicated (3) HTN (hypertension) Status: Chronic Qualifiers: Hypertension type: essential hypertension Qualified Code(s): I10 - Essential (primary) hypertension (4) Nicotine dependence Status: Chronic Qualifiers: Nicotine product type: cigarettes Substance use status: uncomplicated Qualified Code(s): F17.210 - Nicotine dependence, cigarettes, uncomplicated - Follow-up Referral Minutes to complete discharge: 30 - AMA Did Patient Leave Against Medical Advice: No Additional Comments: Pt has own medication in his property. Pt will following up with his primary care provider.
== END 2019-12-28 10:00 | disposition home or self-care (01) | DRG 772 ==
LOC: YASAS 14:28 → Y5N 14:33
PROVIDERS: ADMIT Allergy & Immunology; ATTEND Allergy & Immunology
PROC: HZ42ZZZ Group Counseling for Substance Abuse Treatment, Cognitive-Behavioral (ICD-10-PCS; principal; 2019-12-19)
DX: F10.20 Alcohol dependence, uncomplicated (principal); F14.20 Cocaine dependence, uncomplicated; F17.210 Nicotine dependence, cigarettes, uncomplicated; F19.24 Other psychoactive substance dependence with psychoactive substance-induced mood disorder; F43.10 Post-traumatic stress disorder, unspecified; G47.00 Insomnia, unspecified; I10 Essential (primary) hypertension; E55.9 Vitamin D deficiency, unspecified; R76.11 Nonspecific reaction to tuberculin skin test without active tuberculosis; Z56.0 Unemployment, unspecified; Z59.0 Homelessness
CPT/HCPCS: 82962